=== PATIENT | male | born 1985 | race Caucasian/White ===

== ENCOUNTER 2021-08-01 13:19 | Emergency (ER) | payer MEDICAID, SELFPAY ==
[2021-08-01 13:26] VITALS: BP 140/79; PULSE 102; RESP 18; TEMP 37.4; O2SAT 98
--- NOTE | 2021-08-01 14:08 | ED.GENADUL_ITS ---
Discharge Plan Disposition Patient Disposition: HOME Condition: Stable Discharge Details Clinical Impression: Bipolar 1 disorder, Tobacco dependence, Depressive disorder Primary Care Provider: Mumtaz Wilkins ED Provider: Tamela Braden Home Meds and New Rx's Prescriptions: Continued sertraline [Zoloft] 100 MG tablet 100 tab PO DAILY Qty: 30 11 Discharge Instructions Additional Instructions: Please call on Wednesday to confirm we have this medication Please return should you have new or worsening complaints Continue on your regularly prescribed medication Referrals: Mumtaz Wilkins DO [Primary Care Provider] - Discharge Data Discharge Date/Time-TO BE ENTERED AT DEPARTURE: 08/01/21 17:52 Medical Decision Making Patient is alert, oriented, has a nonfocal neurological exam I did attempt to order the Risperdal, however we do not have it available until Wednesday Patient was made aware that this is not currently available and he may call another hospital or return to the emergency department on Wednesday after calling to confirm that we have this medication available I also involved Marsha care management and she will ensure that patient has [facility] follow-up Return precautions discussed and patient expressed understanding Medical Records Medical records reviewed: Yes I reviewed the patient's medical records. Lab Data Lab results reviewed: Yes I reviewed the patient's lab results. HPI General Date/Time Provider Initiated Documentation: 08/01/21 13:38 . HPI Narrative: This 35-year-old male with recent diagnosis of bipolar disorder presents for Risperdal injection. He states that he had recent hospitalization in [place] and was discharged home on p.o. prescribed but is getting Risperdal injections every 2 weeks. He has an appointment scheduled with his primary care physician for follow-up and was supposed to be established with a psychiatrist locally, zac mccarty his appointment is not to 12 August. He denies any suicidal or homicidal ideation. He feels as though he is much better controlled after taking this medication. He presents only for Risperdal injection, he was told to come here for this injection. He denies any auditory visual hallucinations. Denies any illicit drug use. Related Data Home Medications Medication Instructions Recorded Confirmed sertraline 100 mg tablet (Zoloft) 100 tab PO DAILY #30 t 06/22/14 Allergies Allergy/AdvReac Type Severity Reaction Status Date / Time No Known Drug Allergies Allergy Unverified 03/08/15 15:33 General Stated Complaint: GenMedical ALAINA: 4 Review of Systems All systems reviewed & are unremarkable except as noted in HPI and below PFSH All Active Problems (Updated 08/01/21 @ 14:10 by JORGE Jauregui) Bipolar 1 disorder (Acute) Tobacco dependence (Acute 07/27/13) start age 15 Depressive disorder (Chronic 07/27/13) associated with symptoms of anxiety Medical History (Updated 08/01/21 @ 14:10 by JORGE Jauregui) EtOH dependence Social History (Updated 07/23/21 @ 10:37 by Toma Quinn) Smoking/Tobacco Use Status: Current every day Tobacco Type: e-cigarettes Tobacco: How many years used: 22 Quit status: considering quitting Smoking risk assessment performed?: Yes Alcohol Intake: never Drug use: Never Substance use type: does not use Adopted: No Caregiver/Support person: No Foster care: No Household members: family Housing: house Number of Children: 1 number of grandchildren: 0 Communication Needs: None Education Level: high school Do you need help understanding health information?: Rarely Pets and animals: No Sexually active: Yes Do you think of yourself as: straight/heterosexual Current gender identity: male What is your relationship status?: How often do you talk on the phone with friends or family?: twice per week How often do you get together with friends or relatives?: twice per week Do you belong to any clubs or organized social groups?: no Panel score (0-1 are the most socially isolated patients): 1 What type of physical activity do you participate in: bicycling, weight lifting and running Duration: 15-30 minutes/day Frequency: 3-4 times per week Yecenia/Denominational: Oriental Orthodox Special yecenia needs: No Seatbelt use: always Helmet use: Yes Helmet use: always Drive intox or ride w/intox furniture mover driver: No Do you feel safe at home: Yes Do you feel safe in your relationship?: Yes Exam Const General: cooperative, comfortable and no acute distress Orientation: alert and oriented x3 Neuro General: patient alert and patient oriented x3 Psych Appearance: grossly normal Speech and Movement: speech and movement normal Affect: normal affect Course Vital Signs Vital signs: Vital Signs Temperature 37.4 C 08/01/21 13:26 Pulse 102 H 08/01/21 13:26 Respiratory Rate 18 08/01/21 13:26 Blood Pressure 140/79 08/01/21 13:26 Pulse Oximetry 98 08/01/21 13:26 Temperature 37.4 C 08/01/21 13:26 Temperature Source Tympanic 08/01/21 13:26 Pulse 102 H 08/01/21 13:26 Respiratory Rate 18 08/01/21 13:26 Respiratory Effort 08/01/21 13:29 Respiratory Depth Normal 08/01/21 13:29 Respiratory Pattern Normal 08/01/21 13:29 Blood Pressure 140/79 08/01/21 13:26 Blood Pressure Position Sitting 08/01/21 13:26 Pulse Oximetry 98 08/01/21 13:26 Oxygen Delivery Method Room Air 08/01/21 13:26 Oxygen Flow Rate 0 08/01/21 13:26 Pain Level 0 08/01/21 13:26
--- NOTE | 2021-08-01 16:49 | CMPROGNOTE_ITS ---
- If Service Date Differs Date of service: 08/01/21 Time of Service: 16:49 Care Management Progress Note Too presents in the ED for a Risperdal injection. The ED provider, Tamela Braden, requests that CM contact [facility] ([facility]) where Too has an upcoming appointment to establish care on 08/12/2021 and request a sooner appointment. CM speaks with Joyce, triage nurse at [facility], and is advised that they are unable to provide Risperdal injections, so changing the appointment wi ll not be helpful to Too. SHANDA then contacts [facility] and speaks with Lluvia Dinh. SHANDA learns that Too had a scheduled appointment at [facility] but he cancelled the appointment and did not reschedule it. At SHANDA's request, Lluvia agrees to outreach to Too to offer another appointment. SHANDA then attempts to contact Too but the cell phone number on file ([phone]) is not in service. SHANDA then calls Too's father, who is on his HIPAA Directive, and asks that Too contact directly. A while later, SHANDA does receive a call from [facility] who provides an updated cell phone number of [phone]. SHANDA explains to him that he will need to establish care with [facility] in order to get Risperdal injections, which he is currently getting bi-weekly. Too advises that he has already spoken with someone from [facility] and has an appointment scheduled on 08/20/2021 with [facility]. This information is relayed to ED provider.
--- NOTE | 2021-08-01 16:49 | PDOC.ERCMPRO ---
- If Service Date Differs Date of service: 08/01/21 Time of Service: 16:49 Care Management Progress Note Too presents in the ED for a Risperdal injection. The ED provider, Tamela Braden, requests that CM contact [facility] ([facility]) where Too has an upcoming appointment to establish care on 08/12/2021 and request a sooner appointment. CM speaks with Joyce, triage nurse at [facility], and is advised that they are unable to provide Risperdal injections, so changing the appointment will not be helpful to Too. SHANDA then contacts [facility] and speaks with Lluvia Dinh. SHANDA learns that Too had a scheduled appointment at [facility] but he cancelled the appointment and did not reschedule it. At SHANDA's request, Lluvia agrees to outreach to Too to offer another appointment. SHANDA then attempts to contact Too but the cell phone number on file ([phone]) is not in service. SHANDA then calls Too's father, who is on his HIPAA Directive, and asks that Too contact directly. A while later, SHANDA does receive a call from [facility] who provides an updated cell phone number of [phone]. SHANDA explains to him that he will need to establish care with [facility] in order to get Risperdal injections, which he is currently getting bi-weekly. Too advises that he has already spoken with someone from [facility] and has an appointment scheduled on 08/20/2021 with [facility]. This information is relayed to ED provider.
--- NOTE | 2021-08-04 09:51 | NUR.NOTE ---
Nursing Note: Mother Addie Cordoba, called asked about the medication Risperdal and if we had it today. I called pharmacy and they did not order because they did not have an order to do that. I consulted with Sis Chavez, Nurse Transport Rn and she called the mother back, told her that we didnot have the medication. That they could come in if needed, follow up with PCP about the medication, or [facility]. She understood and will try to make other arrangements per Sis Chavez Nurse Transport Rn. Reanna Jamison
== END 2021-08-01 17:52 | disposition home or self-care (01) ==
PROVIDERS: Emergency Provider Physician Assistant; PCP Family Medicine
DX: F31.9 Bipolar disorder, unspecified (principal); F17.290 Nicotine dependence, other tobacco product, uncomplicated
CPT/HCPCS: 96372; 99284; 99283

== ENCOUNTER 2021-08-13 14:39 | Emergency (ER) | payer MEDICAID, SELFPAY ==
--- NOTE | 2021-08-13 14:45 | RT.EKG_ITS ---
APPROVED REPORT Exam: Resting ECG Reason for Exam: CHEST PAIN Patient Location: E HR:101 bpm ECG Measurements Heart Rate 101 AXIS LA 129 P 74 QRSd 90 QRS 23 QT 325 T 71 QTc 422 Conclusion Sinus tachycardia...rate> 99 ST elev, probable normal early repol pattern...ST elevation, age<55
[2021-08-13 15:00] VITALS: BP 126/66; PULSE 99; RESP 16; TEMP 36.4; O2SAT 99
[2021-08-13 16:46] VITALS: RESP 16
--- NOTE | 2021-08-13 16:46 | ED.GENADUL_ITS ---
Discharge Plan Disposition Patient Disposition: HOME Condition: Improving Discharge Details Clinical Impression: Anxiety reaction Primary Care Provider: Mumtaz Wilkins ED Provider: Jerome Mann Home Meds and New Rx's Prescriptions: Continued risperidone 2 mg tablet 2 mg PO BID 0RF divalproex [Depakote] 250 mg tablet,delayed release (DR/EC) 250 mg PO BID Qty: 60 0RF Discharge Instructions Instructions: Anxiety (ED) Additional Instructions: Please follow-up with your psychiatrist as scheduled. Take your medication as prescribed. Please return to the emergency department for any worsening symptoms including chest pain shortness of breath or any other abnormal symptoms, if you have worsening psychiatric symptoms we can help as well. You been placed on a list to be contacted by our case management team. Medical Decision Making 35-year-old male history of bipolar disorder on respite on recently started on Depakote, presents with resolved chest discomfort anxiety earlier this afternoon/evening, denies chest pain or shortness of breath currently no PE or ACS risk factors, currently calm cooperative, goal oriented, normal interaction, no SI no HI no hallucinations or delusions. Consider panic attack versus medication reaction/interaction versus unlikely ACS or PE versus unlikely pneumothorax or pneumonia. Vital signs stable EKG nonischemic. Had extensive conversation with patient and patient family regarding close follow-up, they feel comfortable following her Wednesday with the psychiatrist, will coordinate case management referral. Home care instructions and strict return precautions given. Patient feels comfortable going home. HPI General Date/Time Provider Initiated Documentation: 08/13/21 15:11 . HPI Narrative: 35-year-old male history of bipolar disorder, on risperidone recently started on Depakote, presents after brief period of chest discomfort anxiety acute distress that started while at work earlier this afternoon/evening, symptomatology resolved on its own, no shortness of breath no fever no cough no current chest pain. Endorses that his medication has been intermittently making him feel sleepy. Has an appointment to see his psychiatrist on Wednesday. No SI no HI no hallucinations. Here with his mother good social support. No cardiac risk factors. No PE risk factors. Related Data Home Medications Medication Instructions Recorded Confirmed divalproex 250 mg tablet,delayed 250 mg PO BID #60 tab 08/12/21 08/13/21 release (Depakote) risperidone 2 mg tablet 2 mg PO BID 08/12/21 08/13/21 Previous Rx's Medication Instructions Recorded divalproex 250 mg tablet,delayed 250 mg PO BID #60 tab 08/12/21 release (Depakote) Allergies Allergy/AdvReac Type Severity Reaction Status Date / Time No Known Drug Allergies Allergy Unverified 08/13/21 15:04 General Stated Complaint: Anxiety ALAINA: 3 Review of Systems Narrative: Review of Systems Constitutional: negative Eyes: negative ENT: negative Cardiovascular: negative Respiratory: negative Gastrointestinal: negative : negative Musculoskeletal: negative Skin: negative Neurologic: negative Psych: Anxiety PFSH All Active Problems (Updated 08/13/21 @ 16:52 by Jerome Mann MD) Anxiety reaction (Acute) Bipolar 1 disorder (Acute) Tobacco dependence (Acute 07/27/13) start age 15 Depressive disorder (Chronic 07/27/13) associated with symptoms of anxiety Medical History (Updated 08/13/21 @ 16:52 by Jerome Mann MD) EtOH dependence Social History (Updated 07/23/21 @ 10:37 by Toma Quinn) Smoking/Tobacco Use Status: Current every day Tobacco Type: e-cigarettes Tobacco: How many years used: 22 Quit status: considering quitting Smoking risk assessment performed?: Yes Alcohol Intake: never Drug use: Occasionally Substance use type: marijuana Adopted: No Caregiver/Support person: No Foster care: No Household members: family Housing: house Number of Children: 1 number of grandchildren: 0 Communication Needs: None Education Level: high school Do you need help understanding health information?: Rarely Pets and animals: No Sexually active: Yes Do you think of yourself as: straight/heterosexual Current gender identity: male What is your relationship status?: How often do you talk on the phone with friends or family?: twice per week How often do you get together with friends or relatives?: twice per week Do you belong to any clubs or organized social groups?: no Panel score (0-1 are the most socially isolated patients): 1 What type of physical activity do you participate in: bicycling, weight lifting and running Duration: 15-30 minutes/day Frequency: 3-4 times per week Yecenia/Latter-Day: Gnosticism Special yecenia needs: No Seatbelt use: always Helmet use: Yes Helmet use: always Drive intox or ride w/intox local company hazmat driver: No Do you feel safe at home: Yes Do you feel safe in your relationship?: Yes Exam Narrative Exam Narrative: Physical Examination General: alert, awake, cooperative, resting comfortably, no acute distress HEENT: normocephalic, atraumatic; PERRL, EOM intact, conjunctiva normal; no nasal discharge; moist mucous membranes, oral and pharyngeal mucosa normal, tolerating secretions Neck: supple, trachea midline; full ROM Chest: normal to inspection Respiratory: normal respiratory effort, speaking in full sentences, clear to auscultation, no wheezing, rales or rhonchi Cardiac: regular rate, regular rhythm, S1S2 intact, no murmurs rubs or gallops GI: abdomen soft, non-tender, non-distended; no palpable mass or hepatosplenomegaly Skin: no lesions, rashes or trauma appreciated Neuro: AAOx3, normal speech, moving all extremities Psych: Anxiety denies SI denies HI denies hallucinations; calm cooperative goal oriented Course Vital Signs Vital signs: Vital Signs Temperature 36.4 C L 08/13/21 15:00 Pulse 99 H 08/13/21 15:00 Respiratory Rate 16 08/13/21 15:00 Blood Pressure 126/66 08/13/21 15:00 Pulse Oximetry 99 08/13/21 15:00 Temperature 36.4 C L 08/13/21 15:00 Temperature Source Skin 08/13/21 15:00 Pulse 99 H 08/13/21 15:00 Respiratory Rate 16 08/13/21 15:00 Respiratory Effort 08/13/21 15:00 Blood Pressure 126/66 08/13/21 15:00 Blood Pressure Position Sitting 08/13/21 15:00 Pulse Oximetry 99 08/13/21 15:00 Oxygen Delivery Method Room Air 08/13/21 15:00 Oxygen Flow Rate 0 08/13/21 15:00 Pain Level 3 08/13/21 15:00
--- NOTE | 2021-08-13 16:47 | NUR.NOTE ---
Nursing Note: Pt info given to care management to be seen in a week for bipolar disorder. Nubia, ED
--- NOTE | 2021-08-14 09:48 | CMPROGNOTE_ITS ---
- If Service Date Differs Date of service: 08/14/21 Time of Service: 09:48 Care Management Progress Note Too is seen in the ED on 08/13/21 for severe anxiety. At the request of ED provider, CM telephones Too to ensures he has appropriate supports in place and is doing okay. Too reports he is feeling much better today. He shares he was recently started on Depakote and wonders if the anxiety might have been caused by the new medication. He states he spoke with a nurse from his PCP's office this morning and the plan is for him to continue taking the Depakote until his appointment with Jacy Hinojosa aprn, at [facility] on Wednesday, August 20, 2021. Too says he has been in contact with [employer] and has started the process of applying for [place] Medicaid and disability but was missing some information. He has obtained this information and plans on meeting with [employer] today to complete the applications.
== END 2021-08-13 16:55 | disposition home or self-care (01) ==
PROVIDERS: Emergency Provider Emergency Medicine; PCP Family Medicine
DX: F41.9 Anxiety disorder, unspecified (principal); R07.9 Chest pain, unspecified
CPT/HCPCS: 93005; 99283; 93010

== ENCOUNTER 2021-09-11 02:32 | Outpatient (CLI) | payer MEDICAID, SELFPAY ==
[2021-09-11 16:04] LABS: Abs Immature Grans 0.03 10^3/uL (0.0-0.06); Absolute Eosinophil Count 0.65 10^3/uL (0.0-0.7); Absolute Lymphocyte Count 3.56 10^3/uL (1.2-3.4); Absolute Monocyte Count 0.75 10^3/uL (0.1-0.8); Absolute Neutrophil Count 5.16 10^3/uL (1.2-6.7); Eosinophils % 6.3; HCT 47.7 % (40.0-50.0); HGB 15.6 g/dL (13.5-17.5); Immature Grans % 0.3; Lymphocytes % 34.7; MCH 30.8 pg (27.0-33.0); MCHC 32.7 % (32.0-36.0); MCV 94.3 fL (80-95); MPV 10.1 fL (8.0-11.0); Monocytes % 7.3; Neutrophils % 50.4; Platelet Count 221 10^3/uL (130-400); RBC 5.06 10^6/uL (4.36-5.78); RDW 13.2 % (11.8-14.1); RDW-SD 45.5 fL; WBC 10.25 10^3/uL (4.4-10.8)
[2021-09-11 16:27] LABS: VALPROIC ACID 49.4 ug/mL
[2021-09-11 16:33] LABS: Hemoglobin A1C 5.4 % (<5.7)
[2021-09-11 18:47] LABS: ALT 24 U/L (16-63); AST 15 U/L (15-37); Albumin 4.6 g/dL (3.4-5.0); Alkaline Phosphatase 52 U/L (46-116); Anion Gap 8.7 mmol/L (3-11); BUN 12 mg/dL (7-18); CO2 28.3 mmol/L (21.0-32.0); CREATININE 0.8 mg/dL (0.70-1.30); Calcium 9.6 mg/dL (8.5-10.1); Calculated LDL 169 mg/dL (<100); Chloride 105 mmol/L (98-107); Cholesterol 261 mg/dL (<200); Glucose 93 mg/dL (74-106); HDL Cholesterol 53 mg/dL (40-60); Potassium 4.2 mmol/L (3.5-5.1); Sodium 142 mmol/L (136-145); Total Protein 7.5 g/dL (6.4-8.2); Triglyceride 199 mg/dL (<150)
[2021-09-11 19:10] LABS: Bilirubin, Total 0.2 mg/dL (0.2-1.0)
[2021-09-11 19:13] LABS: Bilirubin, Direct < 0.1 mg/dL (0.0-0.2)
== END 2021-09-11 02:33 | disposition home or self-care (01) ==
LOC: LBO 02:32
PROVIDERS: PCP Family Medicine; Visit Provider Nurse Practitioner Psychiatric/Mental Health
DX: F31.13 Bipolar disorder, current episode manic without psychotic features, severe (principal)
CPT/HCPCS: 36415; 80053; 80061; 80076; 80164; 83036; 85025

== ENCOUNTER 2021-11-19 01:49 | Outpatient (CLI) | payer MEDICAID, SELFPAY ==
[2021-11-19 09:24] LABS: Abs Immature Grans 0.03 10^3/uL (0.0-0.06); Absolute Basophil Count 0.05 10^3/uL (0.0-0.2); Absolute Eosinophil Count 0.45 10^3/uL (0.0-0.7); Absolute Lymphocyte Count 2.73 10^3/uL (1.2-3.4); Absolute Monocyte Count 0.65 10^3/uL (0.1-0.8); Absolute Neutrophil Count 3.32 10^3/uL (1.2-6.7); Basophils % 0.7; Eosinophils % 6.2; HCT 41.2 % (40.0-50.0); HGB 14.1 g/dL (13.5-17.5); Immature Grans % 0.4; Lymphocytes % 37.8; MCH 31.6 pg (27.0-33.0); MCHC 34.2 % (32.0-36.0); MCV 92 fL (80-95); MPV 9.4 fL (8.0-11.0); Neutrophils % 45.9; Platelet Count 243 10^3/uL (130-400); RBC 4.46 10^6/uL (4.36-5.78); RDW 13.2 % (11.8-14.1); RDW-SD 45.2 fL; WBC 7.23 10^3/uL (4.4-10.8)
[2021-11-19 09:43] LABS: VALPROIC ACID 64.9 ug/mL
[2021-11-19 09:44] LABS: ALT 31 U/L (16-63); AST 15 U/L (15-37); Albumin 3.5 g/dL (3.4-5.0); Alkaline Phosphatase 46 U/L (46-116); Anion Gap 5.8 mmol/L (3-11); BUN 18 mg/dL (7-18); Bilirubin, Total 0.2 mg/dL (0.2-1.0); CO2 27.2 mmol/L (21.0-32.0); CREATININE 1.1 mg/dL (0.70-1.30); Calcium 8.7 mg/dL (8.5-10.1); Calculated LDL 176 mg/dL (<100); Chloride 102 mmol/L (98-107); Cholesterol 254 mg/dL (<200); Glucose 113 mg/dL (74-106); HDL Cholesterol 51 mg/dL (40-60); Hemoglobin A1C 5.2 % (<5.7); Potassium 3.9 mmol/L (3.5-5.1); Sodium 135 mmol/L (136-145); Total Protein 6.6 g/dL (6.4-8.2); Triglyceride 136 mg/dL (<150)
[2021-11-19 09:51] LABS: Bilirubin, Direct 0.1 mg/dL (0.0-0.2)
[2021-11-19 10:18] LABS: Lithium 0.7 mmol/l (0.6-1.2)
== END 2021-11-19 01:50 | disposition home or self-care (01) ==
LOC: LBO 01:49
PROVIDERS: PCP Family Medicine; Visit Provider Nurse Practitioner Psychiatric/Mental Health
DX: F31.13 Bipolar disorder, current episode manic without psychotic features, severe (principal); Z51.81 Encounter for therapeutic drug level monitoring; Z79.899 Other long term (current) drug therapy
CPT/HCPCS: 36415; 80053; 80061; 80076; 80164; 80178; 83036; 85025

== ENCOUNTER 2022-02-04 01:41 | Outpatient (CLI) | payer MEDICAID, SELFPAY ==
[2022-02-04 12:14] LABS: VALPROIC ACID 62.5 ug/mL
== END 2022-02-04 01:42 | disposition home or self-care (01) ==
LOC: LBO 01:41
PROVIDERS: PCP Family Medicine; Visit Provider Nurse Practitioner Psychiatric/Mental Health
DX: F31.13 Bipolar disorder, current episode manic without psychotic features, severe (principal)
CPT/HCPCS: 36415; 80164

== ENCOUNTER 2022-03-18 03:22 | Outpatient (CLI) | payer MEDICAID, SELFPAY ==
[2022-03-18 09:37] LABS: Lithium 0.8 mmol/l (0.6-1.2)
[2022-03-18 09:49] LABS: ALT 32 U/L (16-63); AST 18 U/L (15-37); Alkaline Phosphatase 48 U/L (46-116); Anion Gap 3.7 mmol/L (3-11); BUN 19 mg/dL (7-18); Bilirubin, Total 0.3 mg/dL (0.2-1.0); CO2 31.3 mmol/L (21.0-32.0); CREATININE 1.4 mg/dL (0.70-1.30); Calcium 9.2 mg/dL (8.5-10.1); Chloride 103 mmol/L (98-107); Glucose 95 mg/dL (74-106); Potassium 4.2 mmol/L (3.5-5.1); Sodium 138 mmol/L (136-145); TSH (W/Ref FT4) 3.68 uIU/mL (0.36-3.74); Total Protein 7.5 g/dL (6.4-8.2)
== END 2022-03-18 03:23 | disposition home or self-care (01) ==
LOC: LBO 03:22
PROVIDERS: PCP Family Medicine; Visit Provider Family Medicine
DX: R25.1 Tremor, unspecified (principal); F90.2 Attention-deficit hyperactivity disorder, combined type; F31.89 Other bipolar disorder; Z51.81 Encounter for therapeutic drug level monitoring; Z79.899 Other long term (current) drug therapy
CPT/HCPCS: 36415; 80053; 80178; 84443

== ENCOUNTER 2022-05-26 12:08 | Emergency (ER) | payer MEDICAID, SELFPAY ==
[2022-05-26 12:11] VITALS: BP 133/72; PULSE 94; RESP 16; TEMP 36.9; O2SAT 99
--- NOTE | 2022-05-26 12:24 | ED.GENADUL_ITS ---
Discharge Plan Disposition Patient Disposition: Home Condition: Improving Discharge Details Clinical Impression: Cellulitis of left hand Primary Care Provider: Mumtaz Wilkins ED Provider: Richard Wilkinson Home Meds and New Rx's Prescriptions: New amoxicillin-pot clavulanate 875-125 mg tablet 1 tab PO BID 10 Days Qty: 20 0RF mupirocin [Centany] 2 % ointment 1 applic topical BID 10 Days Qty: 22 0RF Continued bupropion HCl 300 mg tablet extended release 24 hr 150 mg PO QAM divalproex [Depakote] 500 mg tablet,delayed release (DR/EC) 500 mg PO .pm Rx Instructions: 08/21/21 dose change by Jacy GARCIA divalproex [Depakote] 250 mg tablet,delayed release (DR/EC) 250 mg PO QAM Rx Instructions: 08/27/21 Jacy GARCIA cgc hydroxyzine HCl 50 mg tablet 50 mg PO BID PRN Rx Instructions: Note dated 11/28/21 [facility] cgc dextroamphetamine-amphetamine [Adderall] 10 mg tablet 5 mg PO TID benztropine 1 mg tablet 0.5 mg PO DAILY lithium carbonate 150 mg capsule 150 mg PO ONCE lithium carbonate 300 mg capsule 300 mg PO DAILY Discharge Instructions Instructions: Cellulitis (ED) Additional Instructions: Elevate hand above the level of the heart to reduce swelling and discomfort. Remove all remaining rings. Take antibiotics and topical antibiotic as prescribed until finished. Return if you develop a spreading rash, new fever, or any other acute concerns. Medical Decision Making 36-year-old male presents with left hand erythematous, raised, blanching rash. It is not circumferential, primarily located on the dorsum. Appears most consistent with an early cellulitis. We will treat with topical and oral antibiotic. Patient is stable for outpatient management. HPI General Mode of arrival: ambulatory . Date/Time Provider Initiated Documentation: 05/26/22 12:16 . Limitations to Documentation: no limitations . Information obtained by: patient and family . History of Present Illness 36 year old M presents to the emergency department with the chief complaint of Left hand rash for 2 days, described as mild, Quality is described as dull and constant, and is localized to the left and upper extremity. Patient reports no radiation. Patient started experiencing this day(s) and it has been constant. No relieving factors improve symptom(s), No exacerbating factors reported . Patient notes rash; denies fever/chills. Patient did receive the following treatments prior to arrival, none Related Data Home Medications Medication Instructions Recorded Confirmed divalproex 500 mg tablet,delayed 500 mg PO .pm 08/22/21 05/26/22 release (Depakote) divalproex 250 mg tablet,delayed 250 mg PO QAM 09/01/21 05/26/22 release (Depakote) hydroxyzine HCl 50 mg tablet 50 mg PO BID PRN 12/01/21 05/26/22 benztropine 1 mg tablet 0.5 mg PO DAILY 04/21/22 05/26/22 dextroamphetamine-amphetamine 10 5 mg PO TID 04/21/22 05/26/22 mg tablet (Adderall) lithium carbonate 150 mg capsule 150 mg PO ONCE 04/21/22 05/26/22 lithium carbonate 300 mg capsule 300 mg PO DAILY 04/21/22 05/26/22 bupropion HCl 300 mg 24 hr tablet, 150 mg PO QAM 05/11/22 05/26/22 extended release amoxicillin 875 mg-potassium 1 tab PO BID 10 days #20 tabs 05/26/22 clavulanate 125 mg tablet mupirocin 2 % topical ointment 1 applic topical BID 10 days #22 05/26/22 (Centany) grams Previous Rx's Medication Instructions Recorded amoxicillin 875 mg-potassium 1 tab PO BID 10 days #20 tabs 05/26/22 clavulanate 125 mg tablet mupirocin 2 % topical ointment 1 applic topical BID 10 days #22 05/26/22 (Centany) grams Allergies Allergy/AdvReac Type Severity Reaction Status Date / Time atomoxetine [From Strattera] AdvReac Intermediate Verified 05/26/22 12:14 General Stated Complaint: RashLesion ALAINA: 4 Review of Systems Narrative: 6 systems reviewed and otherwise negative PFSH All Active Problems (Updated 05/26/22 @ 12:26 by Richard Wilkinson MD) Cellulitis of left hand (Acute) Tremor (Acute) Attention-deficit hyperactivity disorder, combined type (Chronic) Hyperlipidemia (Acute) Posttraumatic stress disorder (Acute) moderate Bipolar 1 disorder (Acute) Tobacco dependence (Acute 07/27/13) start age 15 Depressive disorder (Chronic 07/27/13) associated with symptoms of anxiety Medical History EtOH dependence Social History Smoking/Tobacco Use Status: Current every day Tobacco Type: e-cigarettes Tobacco: How many years used: 10 Quit status: has quit before Smoking risk assessment performed?: Yes Alcohol Intake: never Drug use: Occasionally Substance use type: marijuana Adopted: No Caregiver/Support person: No Foster care: No Household members: significant other and family Housing: house Number of Children: 1 number of grandchildren: 0 Communication Needs: None Education Level: high school Do you need help understanding health information?: Rarely current occupation: Unemployed Pets and animals: Yes (1) Pets and animals: dog(s) Sexually active: Yes Do you think of yourself as: straight/heterosexual Current gender identity: male What is your relationship status?: living with partner How often do you talk on the phone with friends or family?: twice per week How often do you get together with friends or relatives?: three or more times per week Do you belong to any clubs or organized social groups?: no Panel score (0-1 are the most socially isolated patients): 2 NHANES result reviewed/action taken: No What type of physical activity do you participate in: walking, weight lifting, other Details: VR Games and running Duration: 15-30 minutes/day Frequency: 3-4 times per week Yecenia/Scientologist: Anglican Special yecenia needs: No Seatbelt use: always Helmet use: No Drive intox or ride w/intox route delivery service driver: No Do you feel safe at home: Yes Do you feel safe in your relationship?: Yes Exam Narrative Exam Narrative: GEN: awake, alert, oriented 3. Pleasant, well groomed, interactive. HEAD: Normocephalic, atraumatic= EYES: PERRL, EOMI NECK: Full ROM, no BOY, no menigismus CHEST/RESP: Nontender, clear to auscultation bilateral, no wheeze/rhonchi/rales CARDIOVASCULAR: RRR, no murmur, rub natalia. 2+ Rad pulse bilateral EXT: Full ROM, left hand with primarily dorsal, raised, erythematous and blanching rash with slight scaling present. Neuro: Grossly normal neurologic exam, conversant, interactive. Psych: Speech fluent, thoughts congruent, affect normal Course Vital Signs Vital signs: Vital Signs Temperature 36.9 C 05/26/22 12:11 Pulse 94 H 05/26/22 12:11 Respiratory Rate 16 05/26/22 12:11 Blood Pressure 133/72 05/26/22 12:11 Pulse Oximetry 99 05/26/22 12:11 Temperature 36.9 C 05/26/22 12:11 Temperature Source Temporal Artery Scan 05/26/22 12:11 Pulse 94 H 05/26/22 12:11 Respiratory Rate 16 05/26/22 12:11 Respiratory Effort Non-Labored 05/26/22 12:15 Blood Pressure 133/72 05/26/22 12:11 Blood Pressure Position Sitting 05/26/22 12:11 Pulse Oximetry 99 05/26/22 12:11 Oxygen Delivery Method Room Air 05/26/22 12:11 Oxygen Flow Rate 0 05/26/22 12:11
== END 2022-05-26 12:37 | disposition home or self-care (01) ==
PROVIDERS: Emergency Provider Emergency Medicine; PCP Family Medicine
DX: L03.114 Cellulitis of left upper limb (principal)
CPT/HCPCS: 99283

== ENCOUNTER 2022-08-05 03:00 | Outpatient (CLI) | payer MEDICAID, SELFPAY ==
[2022-08-05 15:58] LABS: VALPROIC ACID 47.2 ug/mL
[2022-08-05 16:10] LABS: Lithium 0.5 mmol/l (0.6-1.2)
[2022-08-05 16:26] LABS: ALT 26 U/L (16-63); AST 11 U/L (15-37); Albumin 4.3 g/dL (3.4-5.0); Alkaline Phosphatase 64 U/L (46-116); Anion Gap 7.6 mmol/L (3-11); BUN 21 mg/dL (7-18); Bilirubin, Total 0.3 mg/dL (0.2-1.0); CO2 29.4 mmol/L (21.0-32.0); CREATININE 1.3 mg/dL (0.70-1.30); Calcium 9.5 mg/dL (8.5-10.1); Chloride 104 mmol/L (98-107); Estimated GFR 73.01 (mL/min/1.73m2); Glucose 72 mg/dL (74-106); Potassium 4.2 mmol/L (3.5-5.1); Sodium 141 mmol/L (136-145); Total Protein 7.2 g/dL (6.4-8.2)
== END 2022-08-05 03:01 | disposition home or self-care (01) ==
LOC: LBO 03:00
PROVIDERS: PCP Family Medicine; Visit Provider Psychiatry & Neurology Neurology
DX: F31.89 Other bipolar disorder (principal); Z51.81 Encounter for therapeutic drug level monitoring; Z79.899 Other long term (current) drug therapy
CPT/HCPCS: 36415; 80053; 80164; 80178

== ENCOUNTER 2022-11-27 02:13 | Outpatient (CLI) | payer MEDICAID, SELFPAY ==
[2022-11-27 12:04] LABS: Abs Immature Grans 0.01 10^3/uL (0.0-0.06); Absolute Basophil Count 0.05 10^3/uL (0.0-0.2); Absolute Eosinophil Count 0.25 10^3/uL (0.0-0.7); Absolute Monocyte Count 0.88 10^3/uL (0.1-0.8); Basophils % 0.6; Eosinophils % 3.1; HCT 43.2 % (40.0-50.0); HGB 14.2 g/dL (13.5-17.5); Immature Grans % 0.1; Lymphocytes % 42.6; MCH 28.7 pg (27.0-33.0); MCHC 32.9 % (32.0-36.0); MCV 87 fL (80-95); MPV 8.9 fL (8.0-11.0); Neutrophils % 42.6; Platelet Count 265 10^3/uL (130-400); RBC 4.95 10^6/uL (4.36-5.78); RDW 13.4 % (11.8-14.1); RDW-SD 42.8 fL; WBC 7.99 10^3/uL (4.4-10.8)
[2022-11-27 12:28] LABS: *AMPHETAMINES SCREEN URINE Positive (Negative); *BARBITURATES SCREEN URINE Negative (Negative); *BENZODIAZEPINES SCREEN URINE Negative (Negative); Cannabinoids THC Positive (Negative); Cocaine Screen,Urine Negative (Negative); METHADONE URINE SCREEN Negative (Negative); OPIATES URINE SCREEN Negative (Negative)
[2022-11-27 12:30] LABS: Tricyclic Antidepressants Negative (Negative)
[2022-11-27 12:36] LABS: VALPROIC ACID 42.3 ug/mL
[2022-11-27 12:39] LABS: ALT 25 U/L (16-63); AST 18 U/L (15-37); Albumin 3.9 g/dL (3.4-5.0); Alkaline Phosphatase 57 U/L (46-116); Anion Gap 6.8 mmol/L (3-11); BUN 21 mg/dL (7-18); Bilirubin, Total 0.3 mg/dL (0.2-1.0); CO2 29.2 mmol/L (21.0-32.0); Calcium 8.8 mg/dL (8.5-10.1); Calculated LDL 207 mg/dL (<100); Chloride 104 mmol/L (98-107); Cholesterol 290 mg/dL (<200); Estimated GFR 100.03 (mL/min/1.73m2); Glucose 92 mg/dL (74-106); HDL Cholesterol 53 mg/dL (40-60); Potassium 4.2 mmol/L (3.5-5.1); Sodium 140 mmol/L (136-145); TSH (W/Ref FT4) 1.26 uIU/mL (0.36-3.74); Total Protein 7.1 g/dL (6.4-8.2); Triglyceride 152 mg/dL (<150)
[2022-11-27 12:45] LABS: Lithium 0.2 mmol/l (0.6-1.2)
[2022-11-30 10:36] LABS: Lyme Ab w Rflx to Lyme Confirm Negative (Negative)
== END 2022-11-27 02:14 | disposition home or self-care (01) ==
LOC: LBO 02:13
PROVIDERS: PCP Family Medicine; Visit Provider Nurse Practitioner Family
DX: F31.13 Bipolar disorder, current episode manic without psychotic features, severe (principal); F20.2 Catatonic schizophrenia; Z79.899 Other long term (current) drug therapy
CPT/HCPCS: 80053; 80061; 80307; 80164; 80178; 84443; 85025; 86618

== ENCOUNTER 2023-03-05 04:32 | Outpatient (CLI) | payer MEDICAID, SELFPAY ==
[2023-03-05 07:38] LABS: HCT 44.2 % (40.0-50.0); HGB 14.7 g/dL (13.5-17.5); MCH 29.6 pg (27.0-33.0); MCHC 33.3 % (32.0-36.0); MCV 89 fL (80-95); MPV 9.3 fL (8.0-11.0); Platelet Count 324 10^3/uL (130-400); RBC 4.96 10^6/uL (4.36-5.78); RDW 14.1 % (11.8-14.1); RDW-SD 46.1 fL; WBC 7.03 10^3/uL (4.4-10.8)
[2023-03-05 07:50] LABS: Ammonia 13 umol/L (11-32)
[2023-03-05 07:52] LABS: *AMPHETAMINES SCREEN URINE Positive (Negative); *BARBITURATES SCREEN URINE Negative (Negative); *BENZODIAZEPINES SCREEN URINE Negative (Negative); Cannabinoids THC Positive (Negative); Cocaine Screen,Urine Negative (Negative); METHADONE URINE SCREEN Negative (Negative); OPIATES URINE SCREEN Negative (Negative)
[2023-03-05 07:54] LABS: Tricyclic Antidepressants Negative (Negative)
[2023-03-05 07:54] LABS: VALPROIC ACID 28.7 ug/mL
[2023-03-05 08:03] LABS: ALT 23 U/L (16-63); AST 12 U/L (15-37); Albumin 3.9 g/dL (3.4-5.0); Alkaline Phosphatase 47 U/L (46-116); BUN 16 mg/dL (7-18); Bilirubin, Total 0.2 mg/dL (0.2-1.0); Calcium 9.5 mg/dL (8.5-10.1); Calculated LDL 176 mg/dL (<100); Chloride 103 mmol/L (98-107); Cholesterol 247 mg/dL (<200); Estimated GFR 99.41 (mL/min/1.73m2); Glucose 109 mg/dL (74-106); HDL Cholesterol 50 mg/dL (40-60); Potassium 4.5 mmol/L (3.5-5.1); Sodium 137 mmol/L (136-145); TSH 1.47 uIU/mL (0.36-3.74); Triglyceride 107 mg/dL (<150)
[2023-03-05 08:06] LABS: Hemoglobin A1C 5.4 % (<5.7)
[2023-03-05 08:07] LABS: Lithium 0.3 mmol/l (0.6-1.2)
== END 2023-03-05 04:33 | disposition home or self-care (01) ==
PROVIDERS: PCP Family Medicine; Visit Provider Nurse Practitioner Psychiatric/Mental Health
DX: F31.13 Bipolar disorder, current episode manic without psychotic features, severe (principal); F90.2 Attention-deficit hyperactivity disorder, combined type; Z79.899 Other long term (current) drug therapy; Z51.81 Encounter for therapeutic drug level monitoring; R79.89 Other specified abnormal findings of blood chemistry
CPT/HCPCS: 36415; 80053; 80061; 80307; 85027; 80164; 80178; 82140; 83036; 84443; 85025

== ENCOUNTER 2023-05-07 10:47 | Outpatient (CLI) | payer MEDICAID, SELFPAY ==
--- NOTE | 2023-05-07 09:15 | DI.RAD_ITS ---
Exam(s) XR FINGER RT INDEX EXAM: XR FINGER RT INDEX CLINICAL HISTORY: mass RIF. TECHNIQUE: 2D digital imaging was performed. Three views. COMPARISON: No exams were available for comparison FINDINGS: BONES: No acute fracture is present. No bony destructive lesion is seen. JOINTS: No dislocation present. Joint spaces are maintained. SOFT TISSUE: Focal area of soft tissue swelling ventrally at the level of the middle phalanx. No sof t tissue calcification. IMPRESSION: Focal soft tissue mass without evidence of calcification or bony erosion. DATA REPOSITORY: RADIATION DOSE DELIVERED:
== END 2023-05-07 10:48 | disposition home or self-care (01) ==
LOC: DIORS 10:48
PROVIDERS: PCP Family Medicine; Visit Provider Physician Assistant
DX: R22.31 Localized swelling, mass and lump, right upper limb (principal)
CPT/HCPCS: 73140

== ENCOUNTER 2023-05-28 11:26 | Day surgery (SDC) | payer MEDICAID, SELFPAY ==
--- NOTE | 2023-05-28 11:45 | PDOC.DSDIS_ITS ---
Date of service: 05/28/23 Time of Service: 11:48 Discharge Plan Disposition Patient Disposition: Home Condition: Good Discharge Details Reason For Visit: Right index finger epidermoid cyst Attending Provider: Nelson Sharpe Primary Care Provider: Mumtaz Wilkins Home Meds and New Rx's Prescriptions: Continued dextroamphetamine-amphetamine [Adderall XR] 30 mg capsule,extended release 24hr 30 mg PO DAILY MDD 30 mg Qty: 30 0RF bupropion HCl [Wellbutrin SR] 150 mg tablet sustained-release 12 hr 150 mg PO DAILY Qty: 30 0RF divalproex [Depakote] 500 mg tablet,delayed release (DR/EC) 500 mg PO .pm Rx Instructions: 08/21/21 dose change by Jacy GARCIA divalproex [Depakote] 250 mg tablet,delayed release (DR/EC) 250 mg PO QAM Rx Instructions: 08/27/21 Jacy GARCIA cgc benztropine 1 mg tablet 0.5 mg PO DAILY lithium carbonate 300 mg capsule 300 mg PO DAILY quetiapine 50 mg tablet 50 mg PO QHS Qty: 60 0RF Discharge Instructions Additional Instructions: Finger Cyst Excision Discharge Instructions Activity: You should keep the hand elevated as much as possible for the first few days. You may use the other fingers as tolerated but avoid trying to do too much too soon. You may perform light activities with the dressing in place. Dressing/Cast: Your dressing should stay in place at all times for 48 hours. After 48 hours you may remove dressing, clean wound and cover with a clean dressing. Medications: - You should take Tylenol and Ibuprofen for baseline pain control. - You may apply ice over the finger. Follow-up: 7-10 days Referrals: Nelson Sharpe MD [ [facility] STAFF PHYSICIAN] - Activity:: Elevate Remove Dressings/Wound Care:: 48 hours Shower/Bathe:: 48 hours Diet:: As Tolerated Discharge Orders Discharge Orders: Discharge Order (Routine); Ordered 05/28/23 Ordered By: Mirta Petit
[2023-05-28 11:47] VITALS: BP 149/90; PULSE 98; RESP 16; TEMP 36.8; O2SAT 98
[2023-05-28] MEDS: Sodium Bicarbonate 50 MEQ/50 ML VIAL (12:57)
--- NOTE | 2023-05-28 13:00 | SKI_PTH ---
PATIENT: Too Cordoba LOC: [facility] U#:[id number] AGE/SX: 37/M ROOM: RE05/28/[address]: Nelson Sharpe MD : 1985 BED: DIS: 05/28/2023 SPEC #: [id number] RECD: 05/28/23 13:22 STATUS: [place] RESpenser #: [id number] MATTHEW: 05/28/23 13:[address]: Nelson Sharpe DEPT: Surgical Specimen RECD BY: Tamela Johnson ENTERED: 05/28/23 13:24 SP TYPE: MOIESS MORROW DR: Mumtaz Wilkins DO Tissues: 1 - SKIN BIOPSY(SHAVE/PUNCH) Procedures: GROSS AND MICRO LEVEL 4 Comments: [id number]
[2023-05-28] MEDS: Lidocaine 1% Multi-Dose W/EPI 1/100,000 50 ML VIAL (13:07)
[2023-05-28 13:20] VITALS: BP 127/84; PULSE 78; RESP 16; TEMP 36.9; O2SAT 97
--- NOTE | 2023-05-28 14:35 | ROE_ITS ---
Date of service: 05/28/23 Time of Service: 12:55 Operative Note Operative Note DATE OF PROCEDURE: 05/28/23 PRE-OP DIAGNOSIS: Right index finger mass POST-OP DIAGNOSIS: same (suspected giant cell tumor) PROCEDURE: Excisional biopsy of right index finger mass (~2cm) SURGEON: Nelson Sharpe ANESTHESIA TYPE: Local By Surgeon Refer to Anesthesia Record ESTIMATED BLOOD LOSS: 10 PATHOLOGY: other (2cm specimen from RIF to pathology) TOURNIQUET TIME: 0 COMPLICATIONS: None Patient was transported to: same day Patient's condition: stable Indications: Too is a 37-year-old who has had a mass about the palmar aspect of the right index finger middle phalanx. This has slowly grown in size. It is now interfering with his ability to use the right hand. There is some pain with direct pressure. Otherwise, there is no other suspicious findings with a negative x-ray for calcifications. Therefore, I recommended excisional biopsy. I reviewed the risk with him. I discussed the risk to include bleeding, infection, pain, stiffness, damage to nerves and vessels, damage to muscle and tendons, recurrence, need for repeat procedures. Despite these risk, he elects to proceed. Findings: There was a solid goldish brown mass with irregular borders detected in the subcutaneous tissues of the palmar right index finger. This was removed in whole and sent to pathology. Procedure Description: Too was greeted in the preoperative holding area. His identity was confirmed the correct site was identified and marked. The consent was reviewed with patient and signed. The history and physical was updated. He was then transfer red back to the operating room. He was kept on the stretcher in the right hand placed on a hand table. The right hand was prepped ChloraPrep and draped in a standard fashion. A timeout was performed for safe surgery. No prophylactic antibiotics were necessary given this clean, elective, hand surgical case. A digital block was then performed utilizing 1% lidocaine with epinephrine. Once this had set up completely a longitudinal incision was made over the palmar ulnar border of the mass of the palmar middle phalanx of the right index finger. This was taken down sharply between flexion creases. Skin was dissected bluntly and the mass was easily identifiable. There was a capsular structure to the mass itself but it was somewhat adherent to the deeper tissues originating from the flexor tendon. Utilizing a tenotomy scissor and a freer elevator, is able to start elevating the tissues away from the mass for better exposure and slowly resected it from the index finger. This was a solid structure which is kept in continuity. It was removed in whole and sent to pathology. Measured approximate 2 cm in length by 1.5 cm in width and 1 cm in depth. There was some bleeding within the wound although not necessarily arterial. The wound was thoroughly irrigated. There is no remnant tissue inspected. The wound was then closed with interrupted #4-0 nylon sutures. The wound was d ressed with Xeroform, 4 x 4's, conform dressing. At the end the case all counts were correct. Too tolerated the procedure well without complication. The mass was sent to pathology.
== END 2023-05-28 11:27 | disposition home or self-care (01) ==
PROVIDERS: PCP Family Medicine; Visit Provider Student in an Organized Health Care Education/Training Program
PROC: (CPT 26111; principal; 2023-05-28 12:30)
DX: D48.19 Other specified neoplasm of uncertain behavior of connective and other soft tissue (principal)
CPT/HCPCS: 26111; 88305; J2004

== ENCOUNTER 2024-06-02 00:57 | Outpatient (CLI) | payer MEDICAID, SELFPAY ==
[2024-06-02 14:14] LABS: Lithium < 0.2 mmol/L (0.6-1.2); VALPROIC ACID < 3 ug/mL
== END 2024-06-02 00:58 | disposition home or self-care (01) ==
PROVIDERS: PCP Family Medicine; Visit Provider Nurse Practitioner Psychiatric/Mental Health
DX: F31.13 Bipolar disorder, current episode manic without psychotic features, severe (principal); Z79.899 Other long term (current) drug therapy
CPT/HCPCS: 36415; 80164; 80178

== ENCOUNTER 2024-07-17 22:07 | Emergency (ER) | payer MEDICAID, SELFPAY ==
[2024-07-17] MEDS: OLANZapine 10 MG VIAL IM (22:57)
[2024-07-17 23:09] VITALS: BP 169/96; PULSE 103; RESP 16; TEMP 37.2; O2SAT 99
[2024-07-17 23:35] LABS: Abs Immature Grans 0.01 10^3/uL (0.0-0.06); Absolute Basophil Count 0.07 10^3/uL (0.0-0.2); Absolute Eosinophil Count 0.09 10^3/uL (0.0-0.7); Absolute Lymphocyte Count 2.83 10^3/uL (1.2-3.4); Absolute Monocyte Count 0.61 10^3/uL (0.1-0.8); Absolute Neutrophil Count 4.56 10^3/uL (1.2-6.7); Basophils % 0.9 %; Eosinophils % 1.1 %; HCT 39.4 % (40.0-50.0); HGB 13.3 g/dL (13.5-17.5); Immature Grans % 0.1 %; Lymphocytes % 34.6 %; MCH 30.5 pg (27.0-33.0); MCHC 33.8 % (32.0-36.0); MCV 90 fL (80-95); Monocytes % 7.5 %; Neutrophils % 55.8 %; Platelet Count 264 10^3/uL (130-400); RBC 4.36 10^6/uL (4.36-5.78); RDW 12.6 % (11.8-14.1); RDW-SD 41.9 fL; WBC 8.17 10^3/uL (4.4-10.8)
[2024-07-17 23:36] LABS: *AMPHETAMINES SCREEN URINE Positive (Negative); *BARBITURATES SCREEN URINE Negative (Negative); *BENZODIAZEPINES SCREEN URINE Negative (Negative); Cannabinoids THC Positive (Negative); Cocaine Screen,Urine Negative (Negative); METHADONE URINE SCREEN Negative (Negative); OPIATES URINE SCREEN Negative (Negative)
[2024-07-17 23:37] LABS: Tricyclic Antidepressants Negative (Negative)
[2024-07-17 23:53] LABS: ALT 19 U/L (16-63); AST 20 U/L (15-37); Albumin 4.1 g/dL (3.4-5.0); Alkaline Phosphatase 59 U/L (46-116); Anion Gap 7.7 mmol/L (3-11); BUN 13 mg/dL (7-18); Bilirubin, Total 0.39 mg/dL (0.2-1.0); CO2 28.3 mmol/L (21.0-32.0); CREATININE 0.9 mg/dL (0.70-1.30); Calcium 10.3 mg/dL (8.5-10.1); Chloride 106 mmol/L (98-107); Estimated GFR 112.11 (mL/min/1.73m2); Glucose 104 mg/dL (74-106); Potassium 3.6 mmol/L (3.5-5.1); Sodium 142 mmol/L (136-145); Total Protein 6.8 g/dL (6.4-8.2)
[2024-07-17 23:55] LABS: Salicylate 3.9 mg/dL (<2.8)
[2024-07-17 23:56] LABS: Acetaminophen < 2 ug/mL (10-30)
--- NOTE | 2024-07-18 00:07 | ED.GENADUL_ITS ---
Discharge Plan Discharge Details Chief Complaint: PsychEval Clinical Impression: Bipolar 1 disorder, Homicidal ideation, Suicidal ideation Primary Care Provider: Mumtaz Wilkins ED Provider: Catalina Harmon Home Meds and New Rx's Prescriptions: No Action dextroamphetamine-amphetamine [Adderall XR] 30 mg capsule,extended release 24hr 30 mg PO DAILY MDD 30 mg Qty: 30 0RF bupropion HCl [Wellbutrin SR] 150 mg tablet sustained-release 12 hr 150 mg PO DAILY Qty: 30 0RF benztropine 1 mg tablet 0.5 mg PO DAILY quetiapine 50 mg tablet 50 mg PO QHS Qty: 60 0RF HPI General Date/Time Provider Initiated Documentation: 07/17/24 22:09 . Information obtained by: patient, police and old records reviewed . HPI Narrative: 38yo M with hx of bipolar arrives via [place] on mental health warrant. Patient minimally participatory in history and exam, states he wants to leave. Denies physical pain or physical complaints. Witness statement from [place] given on 07/17/24 reviewed; reports Too said I should murder them all and let the world burn, asked Too then asked me to shot him. He said I don't want to live... he then asked if I wanted to stab him with a knife...he asked me if I was going to push him down the stairs...Too then went to a shelf and asked me if I wanted to see the pills he had saved to kill himself with Over the past week and a half, I have heard Too yellow to himself in the third constitution party...I have heard him having conversations (very loudly) with God and the devil. Reportedly has not been taking any of his prescribed medications. Related Data Home Medications ?Medication ?Instructions ?Recorded ?Confirmed benztropine 1 mg tablet 0.5 mg PO DAILY 04/21/22 06/16/24 bupropion HCl 150 mg tablet,12 hr 150 mg PO DAILY #30 tabs 08/04/22 06/16/24 sustained-release (Wellbutrin SR) dextroamphetamine-amphetamine ER 30 mg PO DAILY #30 caps 03/30/23 06/16/24 30 mg 24hr capsule,extend release (Adderall XR) quetiapine 50 mg tablet 50 mg PO QHS #60 tabs 04/01/23 06/16/24 Previous Rx's ?Medication ?Instructions ?Recorded bupropion HCl 150 mg tablet,12 hr 150 mg PO DAILY #30 tabs 08/04/22 sustained-release (Wellbutrin SR) dextroamphetamine-amphetamine ER 30 mg PO DAILY #30 caps 03/30/23 30 mg 24hr capsule,extend release (Adderall XR) quetiapine 50 mg tablet 50 mg PO QHS #60 tabs 04/01/23 Allergies Allergy/AdvReac Type Severity Reaction Status Date / Time atomoxetine (From Strattera) AdvReac Intermediate Other (See Verified 06/16/24 13:42 Comment) General Stated Complaint: PsychEval ALAINA: 2 Review of Systems Narrative: see HPI Exam Narrative Exam Narrative: General: Alert, non-toxic. Arrives in handcuffs accompanied by CHRIS Head: Normocephalic, atraumatic Neck: Trachea midline, ?Neck supple. Cardiac: ?RRR, no murmurs appreciated Resp: No respiratory distress. CTAB. Abd: ?Soft, non-distended, nontender : ?No suprapubic tenderness. Extremities: ?No deformities.? No peripheral edema. Neurologic: Alert. Moves all extremities freely against gravity Psych: Moderately agitated. Mood what the fuck do you think.? Speech loud and slightly fast with normal rythym and tone. Somewhat tangential, religiosity. Denies SI/HI/AH/VH. ? Does not appear to be responding to internal stimuli. Course Vital Signs Vital signs: Vital Signs Temperature 37.2 C 07/17/24 23:09 Pulse 103 H 07/17/24 23:09 Respiratory Rate 16 07/17/24 23:09 Blood Pressure 169/96 H 07/17/24 23:09 Pulse Oximetry 99 07/17/24 23:09 Temperature 37.2 C 07/17/24 23:09 Temperature Source Temporal Artery Scan 07/17/24 23:09 Pulse 103 H 07/17/24 23:09 Respiratory Rate 16 07/17/24 23:09 Blood Pressure 169/96 H 07/17/24 23:09 Blood Pressure Position Supine 07/17/24 23:09 Pulse Oximetry 99 07/17/24 23:09 Oxygen Delivery Method Room Air 07/17/24 23:09 Oxygen Flow Rate 0 07/17/24 23:09 Lab/Test Results Lab/Test Results: Laboratory Tests Range/Units 07/17/24 07/17/24 22:45 23:29 WBC (4.4-10.8) 10^3/uL 8.17 RBC (4.36-5.78) 10^6/uL 4.36 Hgb (13.5-17.5) g/dL 13.3 L Hct (40.0-50.0) % 39.4 L MCV (80-95) fL 90 MCH (27.0-33.0) pg 30.5 MCHC (32.0-36.0) % 33.8 RDW (11.8-14.1) % 12.6 Plt Count (130-400) 10^3/uL 264 MPV (8.0-11.0) fL 9.0 Immature Gran % % 0.1 Neutrophils % % 55.8 Lymphocytes % % 34.6 Monocytes % % 7.5 Eosinophils % % 1.1 Basophils % % 0.9 Nucleated RBC % (0.0-0.3) % 0.0 Absolute Neutrophils (1.2-6.7) 10^3/uL 4.56 Absolute Lymphocytes (1.2-3.4) 10^3/uL 2.83 Absolute Monocytes (0.1-0.8) 10^3/uL 0.61 Absolute Eosinophils (0.0-0.7) 10^3/uL 0.09 Absolute Basophils (0.0-0.2) 10^3/uL 0.07 Sodium (136-145) mmol/L 142 Potassium (3.5-5.1) mmol/L 3.6 Chloride (98-107) mmol/L 106 Carbon Dioxide (21.0-32.0) mmol/L 28.3 Anion Gap (3-11) mmol/L 7.7 BUN (7-18) mg/dL 13 Creatinine (0.70-1.30) mg/dL 0.9 Est GFR (CKD-EPI 2020) (mL/min/1.73m2) 112.11 Glucose (74-106) mg/dL 104 Calcium (8.5-10.1) mg/dL 10.3 H Total Bilirubin (0.2-1.0) mg/dL 0.39 AST (15-37) U/L 20 ALT (16-63) U/L 19 Alkaline Phosphatase (46-116) U/L 59 Total Protein (6.4-8.2) g/dL 6.8 Albumin (3.4-5.0) g/dL 4.1 Salicylates (<2.8) mg/dL 3.9 Urine Opiates Screen (Negative) Negative Urine Methadone Screen (Negative) Negative Acetaminophen (10-30) ug/mL < 2 Ur Barbiturates Screen (Negative) Negative Ur Tricyclics Screen (Negative) Negative Ur Amphetamines Screen (Negative) Positive A U Benzodiazepines Scrn (Negative) Negative Urine Cocaine Screen (Negative) Negative Ur THC Screen (Negative) Positive A Medical Decision Making 38yo M with hx of bipolar arrives in handcuffs via [place] on mental health warrant for psychosis and homicidal and suicidal statements. Agitated on arrival, hyperreligious, posturing, vague threatening statements towards staff. Chemically restrained with 10mg IM zyprexa prior to removal of handcuffs. Hypertensive and borderline tachycardia on arrival suspect 2/t agitation. Denies physical complaints and has an unremarkable physical exam. Labs reviewed as below, CBC with mild anemia, CMP with no actionable abnormalities, tylenol and ETOH negative, salicylate detectable at 3.9. Four hour repeat not rising and VBG reassuring, not concerning for toxic ingestion. Review of witness statements provided highly concerning for HI & SI. Medically cleared. Physician certification filed and 2nd cert requested. Spent most of the night apparently sleeping. Calm and appropriate when awake. Will be signed out to oncoming physician; pending 2nd cert and placement. Lab Data Lab results reviewed: Yes I reviewed the patient's lab results. Labs: Laboratory Tests Range/Units 07/17/24 07/17/24 22:45 23:29 WBC (4.4-10.8) 10^3/uL 8.17 RBC (4.36-5.78) 10^6/uL 4.36 Hgb (13.5-17.5) g/dL 13.3 L Hct (40.0-50.0) % 39.4 L MCV (80-95) fL 90 MCH (27.0-33.0) pg 30.5 MCHC (32.0-36.0) % 33.8 RDW (11.8-14.1) % 12.6 Plt Count (130-400) 10^3/uL 264 MPV (8.0-11.0) fL 9.0 Immature Gran % % 0.1 Neutrophils % % 55.8 Lymphocytes % % 34.6 Monocytes % % 7.5 Eosinophils % % 1.1 Basophils % % 0.9 Nucleated RBC % (0.0-0.3) % 0.0 Absolute Neutrophils (1.2-6.7) 10^3/uL 4.56 Absolute Lymphocytes (1.2-3.4) 10^3/uL 2.83 Absolute Monocytes (0.1-0.8) 10^3/uL 0.61 Absolute Eosinophils (0.0-0.7) 10^3/uL 0.09 Absolute Basophils (0.0-0.2) 10^3/uL 0.07 Sodium (136-145) mmol/L 142 Potassium (3.5-5.1) mmol/L 3.6 Chloride (98-107) mmol/L 106 Carbon Dioxide (21.0-32.0) mmol/L 28.3 Anion Gap (3-11) mmol/L 7.7 BUN (7-18) mg/dL 13 Creatinine (0.70-1.30) mg/dL 0.9 Est GFR (CKD-EPI 2020) (mL/min/1.73m2) 112.11 Glucose (74-106) mg/dL 104 Calcium (8.5-10.1) mg/dL 10.3 H Total Bilirubin (0.2-1.0) mg/dL 0.39 AST (15-37) U/L 20 ALT (16-63) U/L 19 Alkaline Phosphatase (46-116) U/L 59 Total Protein (6.4-8.2) g/dL 6.8 Albumin (3.4-5.0) g/dL 4.1 Salicylates (<2.8) mg/dL 3.9 Urine Opiates Screen (Negative) Negative Urine Methadone Screen (Negative) Negative Acetaminophen (10-30) ug/mL < 2 Ur Barbiturates Screen (Negative) Negative Ur Tricyclics Screen (Negative) Negative Ur Amphetamines Screen (Negative) Positive A U Benzodiazepines Scrn (Negative) Negative Urine Cocaine Screen (Negative) Negative Ur THC Screen (Negative) Positive A Ethyl Alcohol (<10) mg/dL < 3.0 Quality:SDOH Health Related Social Needs: Health related social needs transportation insecurity (Z59.82), feeling lonely/isolated (Z60.8) Health related social needs details Issues related to bi-polar Dx PFSH All Active Problems (Updated 07/18/24 @ 03:53 by Catalina Harmon MD) Suicidal ideation (Acute) Homicidal ideation (Acute) Epidermoid cyst of finger of right hand (Acute) s/p biopsy of RIF DOS: 06/07/23 Tremor (Acute) Attention-deficit hyperactivity disorder, combined type (Chronic) Hyperlipidemia (Acute) Posttraumatic stress disorder (Acute) moderate Bipolar 1 disorder (Acute) Tobacco dependence (Acute 07/27/13) start age 15 Depressive disorder (Chronic 07/27/13) associated with symptoms of anxiety Medical History History of alcohol abuse Surgical History No pertinent past surgical history Family History Other Alcohol use disorder Dementia Depression Substance use disorder Social History (Updated 03/30/23 @ 15:04 by Janie Ochoa) Smoking/Tobacco Use Status: Current every day Tobacco Type: e-cigarettes Tobacco: How many years used: 22 Quit status: not considering quitting (unless hypnotism becomes available) Smoking risk assessment performed?: Yes Alcohol Intake: never Drug use: Daily Substance use type: marijuana Adopted: No Caregiver/Support person: No Foster care: No Household members: family Housing: house Number of Children: 1 number of grandchildren: 0 Communication Needs: None Education Level: high school Do you need help understanding health information?: Rarely current occupation: retail loan originator assistant Pets and animals: Yes (1) Pets and animals: dog(s) Sexually active: Yes Do you think of yourself as: straight/heterosexual Current gender identity: male What is your relationship status?: refused to answer How often do you talk on the phone with friends or family?: once per week How often do you get together with friends or relatives?: three or more times per week Do you belong to any clubs or organized social groups?: no Panel score (0-1 are the most socially isolated patients): 1 NHANES result reviewed/action taken: No What type of physical activity do you participate in: weight lifting Duration: 15-30 minutes/day Frequency: 3-4 times per week Yecenia/Baptist: Sikhism Special yecenia needs: No Seatbelt use: always Helmet use: Yes Helmet use: sometimes Drive intox or ride w/intox electric lift truck driver: No Do you feel safe at home: Yes Do you feel safe in your relationship?: Yes Restraint Face to Face Time of Face to Face Face to Face: Time of Face to Face: 22:50 Patient's Immediate Situation Requiring Restraints/Seclusion: Harm to Staff & Others Patient's Medical & Behavioral Condition: Arrives in handcuffs in policy custody. Agitated, repeatedly clenching fists, whole body tense. States you are going to burn me alive and my heart will fight your heart and what do you think will happen then. Offered PO medication which pt refused, stating you do what you have to do and I will do what I have to do and we'll see, again clenching fists and straining against handcuffs. Unsafe to remove physical restraints at this time; will chemically restrain with 10mg IM zyprexa and reassess. 2nd Face to Face: Time of Face to Face: 23:08 Patient's Immediate Situation Requiring Restraints/Seclusion: Harm to Staff & Others Patient Response to Restraints: Tolerating without Problems Patient's Medical & Behavioral Condition: Reassessed 10 minutes after admin of IM zyprexa. Patient more calm, no longer posturing, no verbal threats. [place] were asked to remove handcuffs which was done without complication. Would not use soft restraints here at this time and no indication to re-dose chemical restraints. Will continue to monitor. 3rd Face to Face: Time of Face to Face: 23:55 Patient's Immediate Situation Requiring Restraints/Seclusion: Harm to Staff & Others Patient Response to Restraints: Tolerating without Problems Patient's Medical & Behavioral Condition: Patient laying on his left side, does not appear to be in acute distress. Possibly sleeping though remains restless. No indication for additional chemical or physical restraint at this time. Need for Continuation of Restraints Has Been Assessed: Restraints Terminated
[2024-07-18 00:17] LABS: ETHANOL BLOOD < 3.0 mg/dL (<10)
[2024-07-18 03:50] VITALS: BP 162/78; PULSE 64; RESP 16; TEMP 37.1; O2SAT 100
[2024-07-18 04:05] LABS: BE (Venous) 2 mmol/L (-2-3); HCO3 (Venous) 28 mmol/L (23-28); O2 Sat (Venous) 91 %; TCO2 (Venous) 25 mmol/L (24-29); pCO2 (Venous) 50 mmHg (41-51); pH (Venous) 7.35 (7.31-7.41); pO2 (Venous) 59 mmHg
[2024-07-18 04:40] LABS: Salicylate 3.6 mg/dL (<2.8)
--- NOTE | 2024-07-18 07:20 | W.EDPROG ---
Date of service: 07/18/24 Time of Service: 07:20 Medical Decision Making Care assumed from outgoing provider. Patient is a 38-year-old gentleman with history of bipolar disorder, currently on an involuntary hold. An EE has been filed and pending second certification. Brief moment when patient thought that he wanted to leave but was advised that that was not possible otherwise has been quiet all day. Still pending second certification. Quality:SDOH Health Related Social Needs: Health related social needs transportation insecurity (Z59.82), feeling lonely/isolated (Z60.8) Health related social needs details Issues related to bi-polar Dx Discharge Plan Discharge Details Chief Complaint: PsychEval Clinical Impression: Bipolar 1 disorder, Homicidal ideation, Suicidal ideation Primary Care Provider: Mumtaz Wilkins ED Provider: Belen Vera Home Meds and New Rx's Prescriptions: No Action dextroamphetamine-amphetamine [Adderall XR] 30 mg capsule,extended release 24hr 30 mg PO DAILY MDD 30 mg Qty: 30 0RF bupropion HCl [Wellbutrin SR] 150 mg tablet sustained-release 12 hr 150 mg PO DAILY Qty: 30 0RF benztropine 1 mg tablet 0.5 mg PO DAILY quetiapine 50 mg tablet 50 mg PO QHS Qty: 60 0RF
[2024-07-18 09:10] VITALS: BP 133/89; PULSE 68; RESP 19; TEMP 36.5; O2SAT 99
[2024-07-18] MEDS: Nicotine 21 MG/24 HR PATCH TD (09:19)
--- NOTE | 2024-07-18 11:36 | CMSP_ITS ---
Date of service: 07/18/24 Time of Service: 11:37 Care Management Safety Plan Status Status: Involuntary Reason for Wait Reason for Wait: Inpatient Admission and Assessment/Screening Safety Plan Safety Plan: INVOLUNTARY FOR INPATIENT PSYCHIATRIC STABILIZATION. Safety plan has been established to meet the needs of the patient, and consideration of the care team, to adhere to patient goals, identify restrictions based on behavioral status, address nutrition, and determine allowed personal belongings, tools for hygiene and personal care. Determine level of activity including ambulation, level of supervision, visitors, and determine privileges based on behaviors and level of engagement by pt. SAFETY PLAN: 1. Will remain on SI/HI precautions. In Paper Clothes 2. Will remain in room under direct supervision of one-on-one staff at all times provided by [employer]; TALA, TOURIST AGENT doorperson or luggage porter. 3. May have paper cups, plates, finger foods as well as a cardboard spoon 4. Follow [facility] Management of the Admitted Behavioral Health Patient policy. 5. Comfort bath system only. 6. No personal belongings 7. Visitors: None at this time. 8. Activities: limit stimuli. 9. ?Bathroom privileges with supervision 10. Phone: limited to legal [place] at this time. 11. Due to INVOLUNTARY status, patient is being held at [facility] by the Department of Mental Health ([facility]) until 2nd certification by [facility] Psychiatrist can be performed (within 24 hours). Staff will provide de-escalation support (CPI) as needed. If patient wishes to leave [facility], staff will contact [facility] Crisis Screener ([phone]) and On-Call Ring Spinner ([phone]) as soon as possible. In the event of elopement, notify [place] [employer] ([phone]). Patient is currently involuntarily at [facility]. [facility] Frontline Solid Waste Collection Worker will continue seeking placement. Please contact the Landscape Painter Ring Spinner ([phone]) for any needed changes to Safety Plan. Safety plan has been provided to interdepartmental care team. Patient will be transported by [facility] at time of discharge.
--- NOTE | 2024-07-18 11:36 | PDOC.CMSAFE ---
Date of service: 07/18/24 Time of Service: 11:37 Care Management Safety Plan Status Status: Involuntary Reason for Wait Reason for Wait: Inpatient Admission and Assessment/Screening Safety Plan Safety Plan: INVOLUNTARY FOR INPATIENT PSYCHIATRIC STABILIZATION. Safety plan has been established to meet the needs of the patient, and consideration of the care team, to adhere to patient goals, identify restrictions based on behavioral status, address nutrition, and determine allowed personal belongings, tools for hygiene and personal care. Determine level of activity including ambulation, level of supervision, visitors, and determine privileges based on behaviors and level of engagement by pt. SAFETY PLAN: 1. Will remain on SI/HI precautions. In Paper Clothes 2. Will remain in room under direct supervision of one-on-one staff at all times provided by [employer]; TALA, COMMUNITY DIRECTOR technical sales support specialist. 3. May have paper cups, plates, finger foods as well as a cardboard spoon 4. Follow [facility] Management of the Admitted Behavioral Health Patient policy. 5. Comfort bath system only. 6. No personal belongings 7. Visitors: None at this time. 8. Activities: limit stimuli. 9. ?Bathroom privileges with supervision 10. Phone: limited to legal [place] at this time. 11. Due to INVOLUNTARY status, patient is being held at [facility] by the Department of Mental Health ([facility]) until 2nd certification by [facility] Psychiatrist can be performed (within 24 hours). Staff will provide de-escalation support (CPI) as needed. If patient wishes to leave [facility], staff will contact [facility] Crisis Screener ([phone]) and On-Call Manager Science ([phone]) as soon as possible. In the event of elopement, notify [place] [employer] ([phone]). Patient is currently involuntarily at [facility]. [facility] Frontline Sheet Taker will continue seeking placement. Please contact the Health And Wellness Manager Manager Science ([phone]) for any needed changes to Safety Plan. Safety plan has been provided to interdepartmental care team. Patient will be transported by [facility] at time of discharge.
--- NOTE | 2024-07-18 14:30 | PDOC.CMPRO ---
Date of service: 07/18/24 Time of Service: 14:30 Care Management Progress Note Progress Note Text Progress Note Text: CM huddled with staff in the ED regarding Too's plan of care. Per RN, he has been sleeping most of the day, and has only increased in agitation while meeting with [facility]. Per [facility], Too was brought in on a warrant due to concern for SI and HI, based on reports made by his parents, whom he lives with. He has a diagnosis of Bipolar 1, and per report he has not been taking his medications since he lost his job at the beginning of June. Too is currently involuntary, first certification complete, pending second certification, which will likely happen this afternoon/evening (must be completed within 24 hours of first cert). [facility] is coordinating the second certification with [facility]. Referrals have been sent to all hospitals. Safety plan in place; of note: limit stimuli and no phone calls at this time, outside of legal [place], due to concerns for increased agitation. CM will continue to follow. Social Determinants of Health Screening Will the Patient Participate in the Screening?: Unable to obtain
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
--- NOTE | 2024-07-18 16:26 | NUR.NOTE ---
[facility] unable to take patient due to acuity. Nursing Note:
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
[2024-07-18] MEDS: LORazepam 1 MG TAB PO (20:20)
[2024-07-18] MEDS: QUEtiapine 25 MG TAB 50 MG PO (20:20)
--- NOTE | 2024-07-18 22:16 | W.EDPROG ---
Date of service: 07/18/24 Time of Service: 16:00 Medical Decision Making Quality:SDOH Health Related Social Needs: Health related social needs transportation insecurity (Z59.82), feeling lonely/isolated (Z60.8) Health related social needs details Issues related to bi-polar Dx Discharge Plan Discharge Details Chief Complaint: PsychEval Clinical Impression: Bipolar 1 disorder, Homicidal ideation, Suicidal ideation Primary Care Provider: Mumtaz Wilkins ED Provider: Callum Medrano Home Meds and New Rx's Prescriptions: No Action dextroamphetamine-amphetamine [Adderall XR] 30 mg capsule,extended release 24hr 30 mg PO DAILY MDD 30 mg Qty: 30 0RF bupropion HCl [Wellbutrin SR] 150 mg tablet sustained-release 12 hr 150 mg PO DAILY Qty: 30 0RF benztropine 1 mg tablet 0.5 mg PO DAILY quetiapine 50 mg tablet 50 mg PO QHS Qty: 60 0RF Patient with bipolar disorder who had active hallucination and depression with suicidal ideation he has been placed involuntarily pending placement he has been cooperative throughout his stay today.
[2024-07-19] MEDS: Nicotine 21 MG/24 HR PATCH TD (06:25)
--- NOTE | 2024-07-19 06:44 | ED.PROG_ITS ---
Date of service: 07/19/24 Time of Service: 06:44 Medical Decision Making Patient brought in on a mental health warrant, history of bipolar disorder. He was EE and second certification has been completed and patient is held involuntarily. No issues overnight on my shift. Quality:SDOH Health Related Social Needs: Health related social needs transportation insecurity (Z59.82), feeling lonely/isolated (Z60.8) Health related social needs details Issues related to bi-polar Dx Discharge Plan Discharge Details Chief Complaint: PsychEval Clinical Impression: Bipolar 1 disorder, Homicidal ideation, Suicidal ideation Primary Care Provider: Mumtaz Wilkins ED Provider: Abhishek [facility] and New Rx's Prescriptions: No Action dextroamphetamine-amphetamine [Adderall XR] 30 mg capsule,extended release 24hr 30 mg PO DAILY MDD 30 mg Qty: 30 0RF bupropion HCl [Wellbutrin SR] 150 mg tablet sustained-release 12 hr 150 mg PO DAILY Qty: 30 0RF benztropine 1 mg tablet 0.5 mg PO DAILY quetiapine 50 mg tablet 50 mg PO QHS Qty: 60 0RF
--- NOTE | 2024-07-19 06:55 | W.EDPROG ---
Date of service: 07/19/24 Time of Service: 07:34 Medical Decision Making In brief, this is a 38-year-old female patient with a past medical history significant for bipolar, presenting on an involuntary hold for agitation, suicidal ideation, and delusions. At the time that I took over his care he had been medically cleared, and was awaiting final placement for inpatient level of psychiatric care. I did provide him with a as needed Zyprexa as needed for agitation, though the patient was not amenable to taking it. He does remain disorganized, fixated and repetitive. He had a telemetry psych consult, and the provider recommends Seroquel 50 twice daily, can increase to 100 if the patient tolerates it well and boards in our department for several days. This was ordered, and I signed out care of the patient to the oncoming provider prior to final disposition. Yun Chavarria MD Medical Records Medical records reviewed: Yes I reviewed the patient's medical records. Lab Data Lab results reviewed: Yes I reviewed the patient's lab results. Quality:SDOH Health Related Social Needs: Health related social needs transportation insecurity (Z59.82), feeling lonely/isolated (Z60.8) Health related social needs details Issues related to bi-polar Dx Discharge Plan Discharge Details Chief Complaint: PsychEval Clinical Impression: Bipolar 1 disorder, Homicidal ideation, Suicidal ideation Primary Care Provider: Mumtaz Wilkins ED Provider: Yun Chavarria Home Meds and New Rx's Prescriptions: No Action dextroamphetamine-amphetamine [Adderall XR] 30 mg capsule,extended release 24hr 30 mg PO DAILY MDD 30 mg Qty: 30 0RF bupropion HCl [Wellbutrin SR] 150 mg tablet sustained-release 12 hr 150 mg PO DAILY Qty: 30 0RF benztropine 1 mg tablet 0.5 mg PO DAILY quetiapine 50 mg tablet 50 mg PO QHS Qty: 60 0RF
[2024-07-19] MEDS: Nicotine 2 MG GUM CH ×3 (10:02→14:09)
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
--- NOTE | 2024-07-19 15:03 | CMSP_ITS ---
Date of service: 07/19/24 Time of Service: 15:03 Care Management Safety Plan Status Status: Involuntary Reason for Wait Reason for Wait: Inpatient Admission Safety Plan Safety Plan: Safety plan has been established to meet the needs of the patient, and consideration of the care team, to adhere to patient goals, identify restrictions based on behavioral status, address nutrition, and determine allowed personal belongings, tools for hygiene and personal care. Determine level of activity including ambulation, level of supervision, visitors, and determine privileges based on behaviors and level of engagement by pt. SAFETY PLAN: 1. Will remain on SI/HI precautions. In Paper Clothes 2. Will remain in room under direct supervision of one-on-one staff at all times provided by [employer]; TALA, OPERATIONS ASST barrel rifler operator. 3. May have paper cups, plates, finger foods as well as a cardboard spoon 4. Follow [facility] Management of the Admitted Behavioral Health Patient policy. 5. Comfort bath system only. 6. No personal belongings 7. Visitors: None at this time. 8. Activities: limit stimuli. 9. ?Bathroom privileges with supervision 10. Phone: limited to legal [place] at this time. 11. Due to INVOLUNTARY status, patient is being held at [facility] by the Department of Mental Health ([facility]) until 2nd certification by [facility] Psychiatrist can be performed (within 24 hours). Staff will provide de-escalation support (CPI) as needed. If patient wishes to leave [facility], staff will contact [facility] Crisis Screener ([phone]) and On-Call Senior Adults Director ([phone]) as soon as possible. In the event of elopement, notify [place] [employer] ([phone]). Patient is currently involuntarily at [facility]. [facility] Frontline Drying Machine Back Tender will continue seeking placement. Please contact the Forensic Technician Senior Adults Director ([phone]) for any needed changes to Safety Plan. Safety plan has been provided to interdepartmental care team. Patient will be transported by [facility] at time of discharge.
--- NOTE | 2024-07-19 15:03 | PDOC.CMSAFE ---
Date of service: 07/19/24 Time of Service: 15:03 Care Management Safety Plan Status Status: Involuntary Reason for Wait Reason for Wait: Inpatient Admission Safety Plan Safety Plan: Safety plan has been established to meet the needs of the patient, and consideration of the care team, to adhere to patient goals, identify restrictions based on behavioral status, address nutrition, and determine allowed personal belongings, tools for hygiene and personal care. Determine level of activity including ambulation, level of supervision, visitors, and determine privileges based on behaviors and level of engagement by pt. SAFETY PLAN: 1. Will remain on SI/HI precautions. In Paper Clothes 2. Will remain in room under direct supervision of one-on-one staff at all times provided by [employer]; TALA, BULK TANK DRIVER distributor sales manager. 3. May have paper cups, plates, finger foods as well as a cardboard spoon 4. Follow [facility] Management of the Admitted Behavioral Health Patient policy. 5. Comfort bath system only. 6. No personal belongings 7. Visitors: None at this time. 8. Activities: limit stimuli. 9. ?Bathroom privileges with supervision 10. Phone: limited to legal [place] at this time. 11. Due to INVOLUNTARY status, patient is being held at [facility] by the Department of Mental Health ([facility]) until 2nd certification by [facility] Psychiatrist can be performed (within 24 hours). Staff will provide de-escalation support (CPI) as needed. If patient wishes to leave [facility], staff will contact [facility] Crisis Screener ([phone]) and On-Call Moisture Tester ([phone]) as soon as possible. In the event of elopement, notify [place] [employer] ([phone]). Patient is currently involuntarily at [facility]. [facility] Frontline Dynamometer Repairer will continue seeking placement. Please contact the Customer Agent Moisture Tester ([phone]) for any needed changes to Safety Plan. Safety plan has been provided to interdepartmental care team. Patient will be transported by [employer] at time of discharge.
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
[2024-07-20] MEDS: Nicotine 2 MG GUM CH ×6 (02:00→18:17)
[2024-07-20] MEDS: Nicotine 21 MG/24 HR PATCH TD (03:06)
[2024-07-20] MEDS: LORazepam 1 MG TAB PO (06:23)
--- NOTE | 2024-07-20 06:38 | W.EDPROG ---
Date of service: 07/20/24 Time of Service: 06:38 Medical Decision Making Patient remains on a hold in the ED pending involuntary psychiatric admission. No issues on the overnight shift. Quality:SDOH Health Related Social Needs: Health related social needs transportation insecurity (Z59.82), feeling lonely/isolated (Z60.8) Health related social needs details Issues related to bi-polar Dx Discharge Plan Discharge Details Chief Complaint: PsychEval Clinical Impression: Bipolar 1 disorder, Homicidal ideation, Suicidal ideation Primary Care Provider: Mumtaz Wilkins ED Provider: Abhishek [place] Meds and New Rx's Prescriptions: No Action dextroamphetamine-amphetamine [Adderall XR] 30 mg capsule,extended release 24hr 30 mg PO DAILY MDD 30 mg Qty: 30 0RF bupropion HCl [Wellbutrin SR] 150 mg tablet sustained-release 12 hr 150 mg PO DAILY Qty: 30 0RF benztropine 1 mg tablet 0.5 mg PO DAILY quetiapine 50 mg tablet 50 mg PO QHS Qty: 60 0RF
[2024-07-20 07:28] VITALS: BP 127/89; PULSE 115; RESP 18; TEMP 36.9; O2SAT 100
[2024-07-20] MEDS: QUEtiapine 25 MG TAB 50 MG PO ×2 (09:26→20:04)
--- NOTE | 2024-07-20 09:31 | CMSP_ITS ---
Date of service: 07/20/24 Time of Service: 09:31 Care Management Safety Plan Status Status: Involuntary Reason for Wait Reason for Wait: Inpatient Admission Safety Plan Safety Plan: Safety plan has been established to meet the needs of the patient, and consideration of the care team, to adhere to patient goals, identify restrictions based on behavioral status, address nutrition, and determine allowed personal belongings, tools for hygiene and personal care. Determine level of activity including ambulation, level of supervision, visitors, and determine privileges based on behaviors and level of engagement by pt. SAFETY PLAN: 1. Will remain on SI/HI precautions. In Paper Clothes 2. Will remain in room under direct supervision of one-on-one staff at all times provided by [employer]; TALA, FORENSIC EXAMINER vending machine operator. 3. May have paper cups, plates, finger foods as well as a cardboard spoon 4. Follow [facility] Management of the Admitted Behavioral Health Patient policy. 5. Comfort bath system only. 6. No personal belongings 7. Visitors: None at this time. 8. Activities: limit stimuli. 9. ?Bathroom privileges with supervision 10. Phone: limited to legal [place] at this time. 11. Due to INVOLUNTARY status, patient is being held at [facility] by the Department of Mental Health ([facility]) until 2nd certification by [facility] Psychiatrist can be performed (within 24 hours). Staff will provide de-escalation support (CPI) as needed. If patient wishes to leave [facility], staff will contact [facility] Crisis Screener ([phone]) and On-Call Teacher Music ([phone]) as soon as possible. In the event of elopement, notify [place] [employer] ([phone]). Patient is currently involuntarily at [facility]. [facility] Frontline Emergency Detail Driver will continue seeking placement. Please contact the Director Radiation Oncology Teacher Music ([phone]) for any needed changes to Safety Plan. Safety plan has been provided to interdepartmental care team. Patient will be transported by [employer] at time of discharge.
--- NOTE | 2024-07-20 09:31 | PDOC.CMSAFE ---
Date of service: 07/20/24 Time of Service: 09:31 Care Management Safety Plan Status Status: Involuntary Reason for Wait Reason for Wait: Inpatient Admission Safety Plan Safety Plan: Safety plan has been established to meet the needs of the patient, and consideration of the care team, to adhere to patient goals, identify restrictions based on behavioral status, address nutrition, and determine allowed personal belongings, tools for hygiene and personal care. Determine level of activity including ambulation, level of supervision, visitors, and determine privileges based on behaviors and level of engagement by pt. SAFETY PLAN: 1. Will remain on SI/HI precautions. In Paper Clothes 2. Will remain in room under direct supervision of one-on-one staff at all times provided by [employer]; TALA, WATER RESOURCE PROJECT MANAGER laboratory director. 3. May have paper cups, plates, finger foods as well as a cardboard spoon 4. Follow [facility] Management of the Admitted Behavioral Health Patient policy. 5. Comfort bath system only. 6. No personal belongings 7. Visitors: None at this time. 8. Activities: limit stimuli. 9. ?Bathroom privileges with supervision 10. Phone: limited to legal [place] at this time. 11. Due to INVOLUNTARY status, patient is being held at [facility] by the Department of Mental Health ([facility]) until 2nd certification by [facility] Psychiatrist can be performed (within 24 hours). Staff will provide de-escalation support (CPI) as needed. If patient wishes to leave [facility], staff will contact [facility] Crisis Screener ([phone]) and On-Call Patient Information Coordinator ([phone]) as soon as possible. In the event of elopement, notify [place] State Police ([phone]). Patient is currently involuntarily at [facility]. [facility] Frontline Abattoir Manager will continue seeking placement. Please contact the [place] Patient Information Coordinator ([phone]) for any needed changes to Safety Plan. Safety plan has been provided to interdepartmental care team. Patient will be transported by [facility] at time of discharge.
--- NOTE | 2024-07-20 13:20 | CMSP_ITS ---
Date of service: 07/20/24 Time of Service: 13:20 Care Management Safety Plan Status Status: Involuntary Reason for Wait Reason for Wait: Inpatient Admission Safety Plan Safety Plan: Safety plan has been established to meet the needs of the patient, and consideration of the care team, to adhere to patient goals, identify restrictions based on behavioral status, address nutrition, and determine allowed personal belongings, tools for hygiene and personal care. Determine level of activity including ambulation, level of supervision, visitors, and determine privileges based on behaviors and level of engagement by pt. SAFETY PLAN: 1. Will remain on SI/HI precautions. In Paper Clothes 2. Will remain in room under direct supervision of one-on-one staff at all times provided by [employer]; TALA, LETTER STAMPING MACHINE OPERATOR director of marketing analytics. 3. May have paper cups, plates, finger foods as well as a cardboard spoon 4. Follow [facility] Management of the Admitted Behavioral Health Patient policy. 5. Comfort bath system only. 6. No personal belongings 7. Visitors: None at this time. 8. Activities: limit stimuli. 9. ?Bathroom privileges with supervision 10. Phone: limited to legal [place] at this time. May call his mother, but call must be supervised. 11. Due to INVOLUNTARY status, patient is being held at [facility] by the Department of Mental Health ([facility]) until 2nd certification by [facility] Psychiatrist can be performed (within 24 hours). Staff will provide de-escalation support (CPI) as needed. If patient wishes to leave [facility], staff will contact [facility] Crisis Screener ([phone]) and On-Call Parachute Folder ([phone]) as soon as possible. In the event of elopement, notify [place] State Police ([phone]). Patient is currently involuntarily at [facility]. [facility] Frontline Network Control Operator will continue seeking placement. Please contact the Veterinary Pathologist Parachute Folder ([phone]) for any needed changes to Safety Plan. Safety plan has been provided to interdepartmental care team. Patient will be transported by [facility] at time of discharge.
--- NOTE | 2024-07-20 13:20 | PDOC.CMSAFE ---
Date of service: 07/20/24 Time of Service: 13:20 Care Management Safety Plan Status Status: Involuntary Reason for Wait Reason for Wait: Inpatient Admission Safety Plan Safety Plan: Safety plan has been established to meet the needs of the patient, and consideration of the care team, to adhere to patient goals, identify restrictions based on behavioral status, address nutrition, and determine allowed personal belongings, tools for hygiene and personal care. Determine level of activity including ambulation, level of supervision, visitors, and determine privileges based on behaviors and level of engagement by pt. SAFETY PLAN: 1. Will remain on SI/HI precautions. In Paper Clothes 2. Will remain in room under direct supervision of one-on-one staff at all times provided by [employer]; TALA, THRASHER FEEDER core sticker. 3. May have paper cups, plates, finger foods as well as a cardboard spoon 4. Follow [facility] Management of the Admitted Behavioral Health Patient policy. 5. Comfort bath system only. 6. No personal belongings 7. Visitors: None at this time. 8. Activities: limit stimuli. 9. ?Bathroom privileges with supervision 10. Phone: limited to legal [place] at this time. May call his mother, but call must be supervised. 11. Due to INVOLUNTARY status, patient is being held at [facility] by the Department of Mental Health ([facility]) until 2nd certification by [facility] Psychiatrist can be performed (within 24 hours). Staff will provide de-escalation support (CPI) as needed. If patient wishes to leave [facility], staff will contact [facility] Crisis Screener ([phone]) and On-Call Time Study Observer ([phone]) as soon as possible. In the event of elopement, notify [place] State Police ([phone]). Patient is currently involuntarily at [facility]. [facility] Frontline Privacy Officer will continue seeking placement. Please contact the Pipe Installer Time Study Observer ([phone]) for any needed changes to Safety Plan. Safety plan has been provided to interdepartmental care team. Patient will be transported by [facility] at time of discharge.
--- NOTE | 2024-07-20 13:22 | CMPROGNOTE_ITS ---
Date of service: 07/20/24 Time of Service: 13:22 Care Management Progress Note Progress Note Text Progress Note Text: CM huddled with [facility] worker, and RN. Too is reportedly doing much better today. He had a psych consult yesterday and started on seroquel. [facility] reached out to [place], [place] [facility] and [place] to check on referrals sent, no bed offers. Too stated that he wants to tell his mom that he loves her. Too's safety plan has been updated to allow calls to his mom under direct supervision. Social Determinants of Health Screening Will the Patient Participate in the Screening?: Unable to obtain
--- NOTE | 2024-07-20 15:54 | PDOC.MHPN2 ---
Date of service: 07/20/24 Time of Service: 10:45 PHQ-9 Over the last 2 weeks, how often have you been bothered by any of the following problems? 1. Little interest or pleasure in doing things: not at all 2. Feeling down, depressed, or hopeless: several days 3. Trouble falling or staying asleep, or sleeping too much: several days 4. Feeling tired or having little energy: not at all 5. Poor appetite or overeating: not at all 6. Feeling bad about yourself - or that you are a failure or have let yourself and your family down: not at all 7. Trouble concentrating on things, such as reading the newspaper or watching television: not at all 8. Moving or speaking so slowly that other people could have noticed? - Or the opposite - being so fidgety or restless that you have been moving around a lot more than usual: several days 9. Thoughts that you would be better off or of hurting yourself in some way: not at all Total score: 3 Source: Developed by Drs. Abhishek Melendez, Jaimie Toledo, Eulalio Sandoval and colleagues, with an educational garrick from [employer]. Suicide Severity Rate CSSRS2 Have you been thinking about how you might do this?: No Have you had these thoughts and had some intention of acting on them?: No Have you started to work out or worked out the details of how to kill yourself? Do you intend to carry out this plan?: No CSSRS3 Have you ever done anything, started to do anything or prepared to do anything to end your life?: Yes CSSRS4 Was this within the past three months?: Yes Screening Score Total Score: 4 Screening: [facility] Emergency Note Release [facility] release signed:: Yes Reason for Visit delusional bizarre behaviors, not taking psychotropic prescribed medications In the last 2 weeks has the pt presented for ES prior to today?: No Client Information Client is: Adult Outpatient Well Housed: Yes Non Suicidal Self Injury Current: No History: No Safety Risk/Harm to Self or Others Current Ideation to Harm Self or Others: No Risk: Does risk to harm exist?: yes. Risk: Moderate Risk Duty to warn indicated: No Asssessment/Mental Status Appearance: Other Attitude: Cooperative and Friendly Behavior: Unremarkable Speech: Normal Affect: Cogruent with mood Mood: Expansive, Stressed and Anxious Thought process: Racing and Goal directed Hallucinations: No evidence Delusions: No and yes, Bizarre Attention: Unremarkable Perception: Not impaired Orientation: Fully orientated Memory: Intact Insight: Poor Judgement: Poor Neurovegetative Symptoms Sleep: Increase Appetitie: Increase Interests: No change Energy: No change Libido: Not applicable Substance Use: ETOH dependence (8 years sober) Drug Issues: Other (THC daily) Do you use nicotine?: Yes Have you used substances in the last 7 days?: yes, daily throughout the day but has shown improvement since seroquel was started Additional Issues: Assaultive/Threatening Behavior: Yes Medical Concerns: No Client engaged in active self harm w/weapon: No Threatening to run away: No Child reported abuse/neglect: No Voluntarily presenting for services: No Domestic violence is a concern: No Extreme Psychosis or extreme behavior is present: No Impression Client was given seroquel and is remarkably presentable to day. He was engaging, reality based, and looking forward to getting the help he needs. Certainly a big difference. Resources [facility] [place] and given:: 988 Plan/Disposition Recommended Disposition: Hospitalization facilities contacted. Plan: Client awaiting an inpatient bed Person reported agreement to plan: Yes Facilities contacted if Applicable [facility] Not accepted, (currently looking at referral paperwork) Other [facility] Not accepted, No bed available, [facility] Not accepted, No bed available [facility] Not accepted, No bed available Reports/communication Outcome discussed with: ED/Personnel
--- NOTE | 2024-07-20 17:19 | W.EDPROG ---
Date of service: 07/20/24 Time of Service: 17:19 Medical Decision Making Patient was signed out to me pending placement. Was contacted by Dr. Socorro Canchola, who accepts the patient to transfer to [place]. Pending transport at this time. Patient remained stable here. No interventions needed. Quality:SDOH Health Related Social Needs: Health related social needs transportation insecurity (Z59.82), feeling lonely/isolated (Z60.8) Health related social needs details Issues related to bi-polar Dx Discharge Plan Disposition Patient Disposition: Psychiatric Hospital/Unit Specific Psychiatric Facility: [facility] Condition: Good Discharge Details Chief Complaint: PsychEval Clinical Impression: Bipolar 1 disorder, Homicidal ideation, Suicidal ideation Primary Care Provider: Mumtaz Wilkins ED Provider: Josep Viera Home Meds and New Rx's Prescriptions: No Action dextroamphetamine-amphetamine [Adderall XR] 30 mg capsule,extended release 24hr 30 mg PO DAILY MDD 30 mg Qty: 30 0RF bupropion HCl [Wellbutrin SR] 150 mg tablet sustained-release 12 hr 150 mg PO DAILY Qty: 30 0RF benztropine 1 mg tablet 0.5 mg PO DAILY quetiapine 50 mg tablet 50 mg PO QHS Qty: 60 0RF
--- NOTE | 2024-07-20 21:01 | ED.PROG_ITS ---
Date of service: 07/20/24 Time of Service: 17:00 Medical Decision Making This is a 38-year-old male patient boarding in our emergency department for decompensated bipolar, on an involuntary hold. Prior to my taking over their care, the patient was medically cleared, and has been resting comfortably. They have met with the social media job titles and are accepted to [facility]. They have not required any additional medications for restraint or sedation. They are awaiting transportation which is scheduled for the morning. The patient was signed out to the oncoming provider prior to final disposition. Remained hemodynamically appropriate, calm, cooperative, and comfortable while under my care. Yun Chavarria MD Medical Records Medical records reviewed: Yes I reviewed the patient's medical records. Lab Data Lab results reviewed: Yes I reviewed the patient's lab results. Quality:SDOH Health Related Social Needs: Health related social needs transportation insecurity (Z59.82), feeling lonely/isolated (Z60.8) Health related social needs details Issues related to bi-polar Dx Discharge Plan Disposition Patient Disposition: Psychiatric Hospital/Unit Specific Psychiatric Facility: [facility] Condition: Good Discharge Details Clinical Impression: Bipolar 1 disorder, Homicidal ideation, Suicidal ideation Primary Care Provider: Mumtaz Wilkins ED Provider: Yun Chavarria Home Meds and New Rx's Prescriptions: No Action dextroamphetamine-amphetamine [Adderall XR] 30 mg capsule,extended release 24hr 30 mg PO DAILY MDD 30 mg Qty: 30 0RF bupropion HCl [Wellbutrin SR] 150 mg tablet sustained-release 12 hr 150 mg PO DAILY Qty: 30 0RF benztropine 1 mg tablet 0.5 mg PO DAILY quetiapine 50 mg tablet 50 mg PO QHS Qty: 60 0RF
[2024-07-21] MEDS: LORazepam 1 MG TAB PO (03:23)
[2024-07-21] MEDS: Nicotine 2 MG GUM CH ×6 (03:24→20:14)
[2024-07-21] MEDS: Nicotine 21 MG/24 HR PATCH TD ×2 (06:53→19:13)
[2024-07-21] MEDS: QUEtiapine 25 MG TAB 50 MG PO (07:51)
--- NOTE | 2024-07-21 08:53 | CMDISCH_ITS ---
Date of service: 07/21/24 Time of Service: 08:55 Care Management Discharge Plan Reason for Hospitalization: Bipolar 1 disorder, Homicidal ideation, Suicidal ideation Discharge Plan: Too is being transferred to [facility] this morning. He will be transferred via [facility]. SDOH Health Related Social Needs: Health related social needs transportation insecurity (Z59.82), feeling lonely/isolated (Z60.8) Health related social needs details Issues related to bi-polar Dx
--- NOTE | 2024-07-21 09:11 | W.EDPROG ---
Date of service: 07/21/24 Time of Service: 09:11 Medical Decision Making I performed doc to doc call yesterday, patient was accepted but we are not able to acquire transport. Transport is now available and will be taking the patient to [facility]. Patient remains stable. No interventions needed. Quality:SDOH Health Related Social Needs: Health related social needs transportation insecurity (Z59.82), feeling lonely/isolated (Z60.8) Health related social needs details Issues related to bi-polar Dx Discharge Plan Disposition Patient Disposition: Psychiatric Hospital/Unit Specific Psychiatric Facility: [facility] Condition: Good Discharge Details Clinical Impression: Bipolar 1 disorder, Homicidal ideation, Suicidal ideation Primary Care Provider: Mumtaz Wilkins ED Provider: Josep Viera Home Meds and New Rx's Prescriptions: No Action dextroamphetamine-amphetamine [Adderall XR] 30 mg capsule,extended release 24hr 30 mg PO DAILY MDD 30 mg Qty: 30 0RF bupropion HCl [Wellbutrin SR] 150 mg tablet sustained-release 12 hr 150 mg PO DAILY Qty: 30 0RF benztropine 1 mg tablet 0.5 mg PO DAILY quetiapine 50 mg tablet 50 mg PO QHS Qty: 60 0RF
--- NOTE | 2024-07-21 11:47 | CMSP_ITS ---
Date of service: 07/21/24 Time of Service: 11:48 Care Management Safety Plan Status Status: Involuntary Reason for Wait Reason for Wait: Other (some mix up with transportation today. Is now scheduled to be picked up by [facility] at 8pm on 07/21/24) Safety Plan Safety Plan: Safety plan has been established to meet the needs of the patient, and consideration of the care team, to adhere to patient goals, identify restrictions based on behavioral status, address nutrition, and determine allowed personal belongings, tools for hygiene and personal care. Determine level of activity including ambulation, level of supervision, visitors, and determine privileges based on behaviors and level of engagement by pt. SAFETY PLAN: 1. Will remain on SI/HI precautions. In Paper Clothes 2. Will remain in room under direct supervision of one-on-one staff at all times provided by [employer]PSO; TALA, ASTROPHYSICS TEACHER coremaker bench. 3. May have paper cups, plates, finger foods as well as a cardboard spoon 4. Follow [facility] Management of the Admitted Behavioral Health Patient policy. 5. Comfort bath system only. 6. No personal belongings 7. Visitors: None at this time. 8. Activities: limit stimuli. 9. ?Bathroom privileges with supervision 10. Phone: limited to legal [place] at this time. May call his mother, but call must be supervised. 11. Due to INVOLUNTARY status, patient is being held at [facility] by the Department of Mental Health ([facility]) until 2nd certification by [facility] Psychiatrist can be performed (within 24 hours). Staff will provide de-escalation support (CPI) as needed. If patient wishes to leave [facility], staff will contact [facility] Crisis Screener ([phone]) and On-Call Content Administrator ([phone]) as soon as possible. In the event of elopement, notify [place] State Police ([phone]). Patient is currently involuntarily at [facility]. [facility] Frontline Gut Snatcher will continue seeking placement. Please contact the Car Storer Content Administrator ([phone]) for any needed changes to Safety Plan. Safety plan has been provided to interdepartmental care team. Patient will be transported by [employer] at time of discharge.
--- NOTE | 2024-07-21 11:47 | PDOC.CMSAFE ---
Date of service: 07/21/24 Time of Service: 11:48 Care Management Safety Plan Status Status: Involuntary Reason for Wait Reason for Wait: Other (some mix up with transportation today. Is now scheduled to be picked up by [facility] at 8pm on 07/21/24) Safety Plan Safety Plan: Safety plan has been established to meet the needs of the patient, and consideration of the care team, to adhere to patient goals, identify restrictions based on behavioral status, address nutrition, and determine allowed personal belongings, tools for hygiene and personal care. Determine level of activity including ambulation, level of supervision, visitors, and determine privileges based on behaviors and level of engagement by pt. SAFETY PLAN: 1. Will remain on SI/HI precautions. In Paper Clothes 2. Will remain in room under direct supervision of one-on-one staff at all times provided by [employer]; TALA, DIE REAMER shotgun shell assembly machine operator. 3. May have paper cups, plates, finger foods as well as a cardboard spoon 4. Follow [facility] Management of the Admitted Behavioral Health Patient policy. 5. Comfort bath system only. 6. No personal belongings 7. Visitors: None at this time. 8. Activities: limit stimuli. 9. ?Bathroom privileges with supervision 10. Phone: limited to legal [place] at this time. May call his mother, but call must be supervised. 11. Due to INVOLUNTARY status, patient is being held at [facility] by the Department of Mental Health ([facility]) until 2nd certification by [facility] Psychiatrist can be performed (within 24 hours). Staff will provide de-escalation support (CPI) as needed. If patient wishes to leave [facility], staff will contact [facility] Crisis Screener ([phone]) and On-Call Network Developer ([phone]) as soon as possible. In the event of elopement, notify [place] [employer] ([phone]). Patient is currently involuntarily at [facility]. [facility] Frontline Poultry Offal Worker will continue seeking placement. Please contact the Manager Retail Sales Network Developer ([phone]) for any needed changes to Safety Plan. Safety plan has been provided to interdepartmental care team. Patient will be transported by [employer] at time of discharge.
--- NOTE | 2024-07-21 17:07 | ED.PROG_ITS ---
Date of service: 07/21/24 Time of Service: 17:00 Medical Decision Making This is a 38-year-old male patient boarding in our emergency department on an involuntary hold for decompensated bipolar, awaiting transfer to [facility]. Patient was signed out to me awaiting transport arrival, has been medically cleared, calm, cooperative, and comfortable. He has not required any restraints or sedation and left our facility in the care of the transporting agent without incident. Yun Chavarria MD Medical Records Medical records reviewed: Yes I reviewed the patient's medical records. Lab Data Lab results reviewed: Yes I reviewed the patient's lab results. Quality:SDOH Health Related Social Needs: Health related social needs transportation insecurity (Z59.82), feeling lonely/isolated (Z60.8) Health related social needs details Issues related to bi-polar Dx Discharge Plan Disposition Patient Disposition: Psychiatric Hospital/Unit Specific Psychiatric Facility: [facility]] Condition: Good Discharge Details Clinical Impression: Bipolar 1 disorder, Homicidal ideation, Suicidal ideation Primary Care Provider: Mumtaz Wilkins ED Provider: Yun Chavarria Home Meds and New Rx's Prescriptions: No Action dextroamphetamine-amphetamine [Adderall XR] 30 mg capsule,extended release 24hr 30 mg PO DAILY MDD 30 mg Qty: 30 0RF bupropion HCl [Wellbutrin SR] 150 mg tablet sustained-release 12 hr 150 mg PO DAILY Qty: 30 0RF benztropine 1 mg tablet 0.5 mg PO DAILY quetiapine 50 mg tablet 50 mg PO QHS Qty: 60 0RF
== END 2024-07-21 20:15 ==
PROVIDERS: Student in an Organized Health Care Education/Training Program; Emergency Provider Emergency Medicine; PCP Family Medicine
DX: R45.851 Suicidal ideations (principal); R45.850 Homicidal ideations; F31.64 Bipolar disorder, current episode mixed, severe, with psychotic features; F17.290 Nicotine dependence, other tobacco product, uncomplicated; Z91.148 Patient's other noncompliance with medication regimen for other reason; Z91.51 Personal history of suicidal behavior
CPT/HCPCS: 00123; 80053; 80307; 82805; 96127; 96372; 99285; 80320; 80329; 85025; J2359

== ENCOUNTER 2024-10-18 02:10 | Outpatient (CLI) | payer MEDICAID, SELFPAY ==
[2024-10-18 09:09] LABS: Hemoglobin A1C 5.4 % (<5.7)
[2024-10-18 09:26] LABS: Anion Gap 4.7 mmol/L (3-11); BUN 14 mg/dL (7-18); CO2 31.3 mmol/L (21.0-32.0); CREATININE 0.8 mg/dL (0.70-1.30); Calcium 9.4 mg/dL (8.5-10.1); Calculated LDL 228 mg/dL (<100); Chloride 104 mmol/L (98-107); Cholesterol 319 mg/dL (<200); Estimated GFR 116.17 (mL/min/1.73m2); Glucose 99 mg/dL (74-106); HDL Cholesterol 47 mg/dL (>or=40); Potassium 4.4 mmol/L (3.5-5.1); Sodium 140 mmol/L (136-145); Triglyceride 220 mg/dL (<150)
== END 2024-10-18 02:11 | disposition home or self-care (01) ==
LOC: LBO 02:10
PROVIDERS: PCP Family Medicine; Visit Provider Family Medicine
DX: E78.5 Hyperlipidemia, unspecified (principal); R63.5 Abnormal weight gain
CPT/HCPCS: 36415; 80048; 80061; 83036; 84443

== ENCOUNTER 2025-01-25 11:24 | Emergency (ER) | payer MEDICAID, SELFPAY ==
[2025-01-25 11:33] VITALS: BP 146/80; PULSE 96; RESP 18; TEMP 36.5; O2SAT 97
--- NOTE | 2025-01-25 12:30 | DI.US_ITS ---
Exam(s) US SCROTUM EXAM: US SCROTUM CLINICAL HISTORY: pain right testes. TECHNIQUE: Scrotal ultrasound performed using grayscale, color-flow and spectral Doppler analysis. COMPARISON: No exams were available for comparison FINDINGS: RIGHT TESTICLE: 3.8 x 1.9 x 3.2 cm Echogenicity: Normal. Contour: Smooth. Mass: None seen. Microlithiasis: None. Hydrocele: Small Varicocele: None. Hernia: No peristalsing bowel loop identified. Epididymis: Normal. Scrotum: Normal. LEFT TESTICLE: 3.6 x 1.9 x 3.8 cm Echogenicity: Normal. Contour: Smooth. Mass: None seen. Microlithiasis: None. Hydrocele: Small Varicocele: None. Hernia: No peristalsing bowel loop identified. Epididymis: Normal. Scrotum: Normal. DOPPLER: Color: Symmetric and uniform, no hyperemia. Duplex: Bilateral testicular arterial waveforms visualized. IMPRESSION: Normal appearing bilateral testicles. No evidence torsion. No evidence of epididymitis. Minimal bilateral hydroceles. DATA REPOSITORY:
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
[2025-01-25 13:36] VITALS: BP 138/94; PULSE 74; RESP 18; O2SAT 99
== END 2025-01-25 13:57 | disposition home or self-care (01) ==
PROVIDERS: Emergency Provider Student in an Organized Health Care Education/Training Program; PCP Family Medicine
DX: N50.811 Right testicular pain (principal); Z59.82 Transportation insecurity; Z60.8 Other problems related to social environment
CPT/HCPCS: 99283; 99284; 76870